=== PATIENT | female | born 1960 | race Caucasian/White ===

== ENCOUNTER → 2018-05-10 13:40 | Outpatient (CLI) | payer MEDICARE, SELFPAY ==
--- NOTE | 2018-05-10 | DI.RAD.S_ITS ---
PROCEDURE: XR SHOULDER RT MIN 2V INDICATIONS: RT SHOULDER PAIN, ARTHRITIS TECHNIQUE: 3 views of the shoulder were acquired. COMPARISON: [facility], , CHEST 2 VIEW, 06/04/2017, 16:28. FINDINGS: Bones: No fractures or dislocations. No suspicious bony lesions. Visualized ribs appear intact. Multiple surgical clips right axilla area. Mild to moderate glenohumeral and a.c. joint osteoarthritis. Soft tissues: No suspicious soft tissue calcifications. IMPRESSION: Right axillary surgical clips, potentially an indicator of prior breast carcinoma. Mild to moderate a.c. joint and glenohumeral joint osteoarthritis at the right shoulder. Dictated by: George Garcia M.D. on 05/10/2018 at 14:24 Approved by: George Garcia M.D. on 05/10/2018 at 14:25
[2018-05-10 14:17] LABS: BUN Creatinine Ratio 21.4 (6-22); Blood Urea Nitrogen 15 mg/dL (7-17); Carbon Dioxide 29 mmol/L (22-32); Chloride 104 mmol/L (98-107); Estimated Glomerular Filt Rate > 60.0 mL/min (>60); Glucose 110 mg/dL (70-100); HEMOLYSIS < 15 (0-50); Potassium 4.2 mmol/L (3.4-5.1); Sodium 145 mmol/L (137-145)
== END ==
PROVIDERS: PCP Family Medicine; Visit Provider Family Medicine
DX: M25.511 Pain in right shoulder (principal); M19.90 Unspecified osteoarthritis, unspecified site
CPT/HCPCS: 36415; 73030; 80048

== ENCOUNTER → 2018-05-24 11:18 | Outpatient (CLI) | payer MEDICARE, SELFPAY ==
--- NOTE | 2018-05-24 | DI.NM.S_ITS ---
PROCEDURE: [place] BONE SCAN WHOLE BODY RADIOPHARMACEUTICAL: 20.2 mCi Tc-99m MDP IV. INDICATIONS: Primary osteoarthritis, right shoulder,breast canc TECHNIQUE: Delayed whole-body scintigrams were obtained approximately 3-4 hours after intravenous injection of radiotracer. Anterior and posterior views were acquired from vertex to feet. Additional left and right oblique views of the thorax were obtained. COMPARISON: [place], [place], PET/CT SKULL BASE TO MID THIGH, 12/29/2016, 11:06. FINDINGS: No areas relative intense radiotracer uptake identified. Relatively subtle radiotracer uptake identified in the shoulders bilaterally, the knees bilaterally and the feet bilaterally compatible with osteoarthritis. No areas of osteopenia identified in the osseous skeleton. No abnormal soft tissue uptake identified. Activity in the kidneys is normal and symmetric. Incidental note made of prominent bilateral extrarenal pelvises. IMPRESSION: No evidence of osseous metastatic disease. Dictated by: Kathryn Hoffman MD, PhD on 05/24/2018 at 15:52 Approved by: Kathryn Hoffman MD, PhD on 05/24/2018 at 15:54
== END ==
PROVIDERS: PCP Family Medicine; Visit Provider Family Medicine
DX: M25.511 Pain in right shoulder (principal); M19.011 Primary osteoarthritis, right shoulder; Z85.3 Personal history of malignant neoplasm of breast
CPT/HCPCS: 78306; A9503

== ENCOUNTER → 2018-08-06 13:23 | Outpatient (CLI) | payer MEDICARE, SELFPAY | PROVIDERS: PCP Family Medicine; Visit Provider Family Medicine | DX: M85.852 Other specified disorders of bone density and structure, left thigh (principal); Z78.0 Asymptomatic menopausal state; Z85.3 Personal history of malignant neoplasm of breast; Z90.722 Acquired absence of ovaries, bilateral; Z82.62 Family history of osteoporosis; F17.200 Nicotine dependence, unspecified, uncomplicated | CPT/HCPCS: 77080; 77081 ==

== ENCOUNTER → 2019-01-07 12:56 | Outpatient (CLI) | payer MEDICARE, SELFPAY ==
--- NOTE | 2019-01-07 | DI.MRI.S_ITS ---
PROCEDURE: MR SHOULDER RT WO CON INDICATIONS: right shoulder pain TECHNIQUE: Noncontrast oblique coronal T2 fast spin echo with fat saturation, oblique sagittal T1 spin echo and T2 fast spin echo with fat saturation, axial T1 spin echo and T2 fast spin echo with fat saturation through the shoulder. COMPARISON: [facility], [place], XR SHOULDER RT MIN 2V, 05/10/2018, 14:03. [facility], , UP EXT WITH, 08/11/2011, 14:04. [place], [place], PET/CT SKULL BASE TO MID THIGH, 12/29/2016, 11:06. [facility], [place], [place] BONE SCAN WHOLE BODY, 05/24/2018, 14:16. [facility], [place], XR SHOULDER 2+ VIEWS RIGHT, 12/13/2018, 13:15. FINDINGS: Image quality: Excellent. Rotator cuff: There is high-grade partial-thickness tear of the supraspinatus tendon along the articular surface. There is infraspinatus and subscapularis tendinitis with tendon thickening and increased signal. Sagittal images demonstrate no supraspinatus muscle atrophy. Bones and bursae: No bone marrow contusions or fractures. Acromioplasty. Moderate acromioclavicular and glenohumeral joint degeneration. The acromion demonstrates conventional anatomy, without an os acromiale. No pathologic subacromial-subdeltoid or subcoracoid bursal fluid is present. Capsule and soft tissues: There is degenerative fraying of the superior labrum. In the absence of intra-articular contrast, the glenohumeral ligaments appear intact. The long head of the biceps tendon demonstrates normal location and morphology. The rotator interval appears normal, without fibrosis. The coracohumeral ligament is normal in thickness. IMPRESSION: 1. High-grade partial thickness tear of the supraspinatus tendon. No tendon retraction or supraspinatus muscle atrophy. 2. Infraspinatus and subscapularis tendinitis. 3. Degenerative fraying of the superior labrum. 4. Moderate acromioclavicular and glenohumeral joint degeneration. Dictated by: Shannan Ayala M.D. on 01/07/2019 at 15:21 Approved by: Shannan Ayala M.D. on 01/07/2019 at 17:35
== END ==
PROVIDERS: PCP Family Medicine; Visit Provider Orthopaedic Surgery
DX: M25.511 Pain in right shoulder (principal); M75.111 Incomplete rotator cuff tear or rupture of right shoulder, not specified as traumatic; M19.011 Primary osteoarthritis, right shoulder
CPT/HCPCS: 73221

== ENCOUNTER → 2019-01-14 11:11 | Outpatient (CLI) | payer MEDICARE, SELFPAY ==
--- NOTE | 2019-01-14 11:23 | DI.MRI.S_ITS ---
BREAST MRI OF BOTH BREASTS- WITH CAD: 01/14/2019 CLINICAL: Mastodynia. Personal history of right breast cancer. Post double mastectomy. Comparison is made to exams dated: 08/29/2017 ultrasound, 04/21/2011, and 04/12/2011 [facility]. Interpretation of this MRI was correlated with available ultrasounds. Informed consent was obtained from the patient. 20 cc of gadolinium contrast was injected. Axial T1, T2, sagittal T1, and pre and post contrast T1 images were obtained with a dedicated breast coil. Post processing was performed including computer aided calculations of any tumor volumes and dimensions. Bilateral background breast enhancement is minimal. Image quality: There is motion artifact slightly limiting evaluation. Right breast: Status post mastectomy with reconstruction. The breast implant appears intact. No discrete mass lesion or suspicious enhancement to suggest recurrent malignancy. Left breast: Status post mastectomy with reconstruction. The breast implant appears intact. No discrete mass lesion or suspicious enhancement to suggest recurrent malignancy. Miscellaneous: No evidence of axillary or internal mammary lymphadenopathy by size criteria. IMPRESSION: NEGATIVE 1. Bilateral postsurgical changes consistent with bilateral mastectomy and reconstruction demonstrated with intact bilateral implants. No discrete mass or suspicious enhancement to suggest malignancy. This exam was interpreted at Station ID: [id number]. Electronically Signed By: Prabhu Astorga M.D. ddp/:01/14/2019 17:04:56 letter sent: Clinical Evaluation ACR BI-RADS Category 1: Negative [id number]
== END ==
PROVIDERS: PCP Family Medicine; Visit Provider Obstetrics & Gynecology
DX: Z98.890 Other specified postprocedural states (principal); N64.4 Mastodynia; Z85.3 Personal history of malignant neoplasm of breast
CPT/HCPCS: 77049; A9579

== ENCOUNTER → 2019-08-12 13:06 | Outpatient (CLI) | payer MEDICARE, SELFPAY ==
--- NOTE | 2019-08-12 | DI.CT.S_ITS ---
PROCEDURE: CT ANGIO HEAD AND NECK INDICATIONS: Disorders of glossopharyngeal nerve TECHNIQUE: Pre-contrast 4.5 mm thick sections acquired from the foramen magnum to the vertex. After the administration of intravenous contrast, 1 mm thick sections acquired from the aortic arch through the [place]. Post-contrast 4.5 mm thick sections then re-acquired from the foramen magnum to the vertex. 3-dimensional zjvufna-efayujhnq-fmmvaymtcy (MIP) and/or volume rendering reformats were acquired of the central intracranial vasculature and neck separately. COMPARISON: None. FINDINGS: Image quality: Excellent. BRAIN: CSF spaces: Ventricles are normal in size and shape. Basal cisterns are patent. No extra-axial fluid collections. Brain: No midline shift. No intracranial bleeds or masses. Breaux-white matter interface appears intact. Skull and face: Calvarium and facial bones appear intact, without suspicious lesions. Orbits appear normal. Sinuses: Sinuses and mastoids are clear. HEAD CT ANGIOGRAPHY: Anterior circulation: Intracranial internal carotid arteries are normal in size and flow. The flow within the paired anterior cerebral arteries is normal and symmetric. The flow within the middle cerebral arteries is normal and symmetric. The anterior communicating artery is seen. No aneurysms are seen. Posterior circulation: Visualized portions of the vertebral arteries demonstrate normal caliber, and join to form a normal appearing basilar artery. Flow within the posterior cerebral arteries is normal and symmetric. No aneurysms are seen. NECK CT ANGIOGRAPHY: Carotid system: The great vessels demonstrate a conventional anatomy as they arise from the aortic arch. The origins of the common carotid arteries appear patent. The common carotid arteries demonstrate normal caliber and courses. The bifurcation regions are both widely patent. The internal carotid arteries demonstrate normal calibers and courses. Posterior circulation: The origins of the vertebral arteries both appear widely patent. The more superior extracranial portions of both vertebral arteries also demonstrate normal courses and calibers. They join to form a normal appearing basilar artery. Soft tissues: Visualized neck soft tissues demonstrate no suspicious abnormalities. Bones: No suspicious bony lesions. Visualized cervical spine appears normally aligned. IMPRESSION: Normal examination, source of current symptomatology is not identified. Any quantitative measurements of stenosis were performed using NASCET criteria. Dictated by: George Garcia M.D. on 08/12/2019 at 16:53 Approved by: George Garcia M.D. on 08/12/2019 at 16:56
== END ==
PROVIDERS: PCP Family Medicine; Referring Provider Family Medicine; Visit Provider Family Medicine
DX: G52.1 Disorders of glossopharyngeal nerve (principal); G50.0 Trigeminal neuralgia
CPT/HCPCS: 70496; 70498; Q9967

== ENCOUNTER → 2019-09-21 11:47 | Outpatient (CLI) | payer MEDICARE, SELFPAY ==
[2019-09-21 12:17] LABS: Add Manual Diff / Slide Review NO; Basophils Absolute Auto 0 /uL (0-100); Basophils Percent Auto 0.5 % (0-2); Eosinophils Absolute Auto 300 /uL (0-450); Eosinophils Percent Auto 5.1 % (2-4); Hematocrit 39.6 % (36-46); Hemoglobin 13.2 g/dL (12.0-16.0); Lymphocytes Absolute Auto 1900 /uL (1100-4500); Lymphocytes Percent Auto 32.8 % (25-40); Mean Corpuscular HGB Conc 33.3 % (30-36); Mean Corpuscular Hemoglobin 31.1 PG (26-34); Mean Corpuscular Volume 93.3 fL (80-100); Monocytes Absolute Auto 400 /uL (0-900); Monocytes Percent Auto 7.6 % (3-14); Neutrophils Absolute Auto 3100 /uL (1500-7000); Platelet Count 222 X10^3/uL (150-400); Red Blood Cell Count 4.24 X10^6/uL (4.0-5.2); Red Cell Distribution Width 13.8 % (11.6-14.8); White Blood Cell Count 5.8 X10^3/uL (4.5-11.0)
[2019-09-21 15:09] LABS: Influenza A - CEPHEID Flu A NEGATIVE (NEGATIVE); Influenza B - CEPHEID Flu B NEGATIVE (NEGATIVE)
[2019-09-22 15:23] LABS: COVID19 Sendout NOT DETECTED
== END ==
PROVIDERS: PCP Family Medicine; Visit Provider Physician Assistant
DX: J11.1 Influenza due to unidentified influenza virus with other respiratory manifestations (principal); R68.89 Other general symptoms and signs; R05 Cough
CPT/HCPCS: 36415; 85025; 87502; 87635

== ENCOUNTER → 2019-09-21 11:54 | Outpatient (CLI) | payer MEDICARE, SELFPAY ==
--- NOTE | 2019-09-21 11:55 | DI.RAD.S_ITS ---
PROCEDURE: XR CHEST 2V INDICATIONS: Cough, smoker, hx of breast cancer x 2, colon polyps TECHNIQUE: 2 views of the chest were acquired. COMPARISON: [facility], , CHEST 2 VIEW, 06/04/2017, 16:28. FINDINGS: Surgical changes and devices: Post surgical changes within the right axilla are present. There also are postoperative changes within the mid thoracic region. There appear to be bilateral breast implants. Lungs and pleura: Linear discoid atelectasis is identified at the left lung base. No suspicious areas of pulmonary consolidation are identified. No pneumothorax or pleural effusion is evident. Mediastinum: Mediastinal contours are normal. Heart size is normal. Bones and chest wall: No suspicious bony abnormalities. Soft tissues appear unremarkable. IMPRESSION: Mild left basilar atelectasis. No definitive pneumonia. Dictated by: Jose Swenson M.D. on 09/21/2019 at 11:20 Approved by: Jose Swenson M.D. on 09/21/2019 at 11:21
== END ==
PROVIDERS: PCP Family Medicine; Referring Provider Physician Assistant; Visit Provider Physician Assistant
DX: R05 Cough (principal); J98.11 Atelectasis; J11.1 Influenza due to unidentified influenza virus with other respiratory manifestations; R68.89 Other general symptoms and signs; F17.200 Nicotine dependence, unspecified, uncomplicated; Z85.3 Personal history of malignant neoplasm of breast; Z86.010 Personal history of colon polyps
CPT/HCPCS: 36415; 71046; 85025; 87502; 87635

== ENCOUNTER → 2020-02-19 13:20 | Outpatient (CLI) | payer MEDICARE, SELFPAY ==
--- NOTE | 2020-02-19 | DI.MRI.S_ITS ---
PROCEDURE: MR SHOULDER RT WO CON INDICATIONS: OTHER INJURY TO TENDONS AND MUSCLES TECHNIQUE: Noncontrast oblique coronal T2 fast spin echo with fat saturation, oblique sagittal T1 spin echo and T2 fast spin echo with fat saturation, axial T1 spin echo and T2 fast spin echo with fat saturation through the shoulder. COMPARISON: [facility], MR, MR SHOULDER RT WO CON, 01/07/2019, 13:40. [facility], MR, UP EXT WITH, 08/11/2011, 14:04. [facility], CR, XR SHOULDER RT MIN 2V, 05/10/2018, 14:03. FINDINGS: Image quality: Excellent. Rotator cuff: High-grade, partial undersurface tear of the supraspinatus tendon is not significantly changed compared to prior examination obtained January 07, 2019. The infraspinatus, and subscapularis tendons appear intact throughout. Mild thickening of the infraspinatus tendon with increased internal signal compatible mild tendinosis. Sagittal images demonstrate no muscle atrophy. Bones and bursae: No bone marrow contusions or fractures. Moderate acromioclavicular joint osteoarthritis. Mild glenohumeral joint osteoarthritis. The acromion demonstrates conventional anatomy, without an os acromiale. No pathologic subacromial-subdeltoid or subcoracoid bursal fluid is present. Capsule and soft tissues: In the absence of intra-articular contrast, the labrum and glenohumeral ligaments appear intact. The long head of the biceps tendon demonstrates normal location and morphology. The rotator interval appears normal, without fibrosis. The coracohumeral ligament is normal in thickness. IMPRESSION: 1. High-grade, partial undersurface tear of the supraspinatus tendon not significantly changed compared to January 07, 2019. 2. Mild infraspinatus tendinosis. 3. Moderate acromioclavicular joint and mild glenohumeral joint osteoarthritis. Dictated by: Kathryn Hoffman MD, PhD on 02/19/2020 at 17:21 Approved by: Kathryn Hoffman MD, PhD on 02/19/2020 at 20:44
== END ==
PROVIDERS: PCP Family Medicine; Referring Provider Family Medicine; Visit Provider Family Medicine
DX: S46.091D Other injury of muscle(s) and tendon(s) of the rotator cuff of right shoulder, subsequent encounter (principal); M19.011 Primary osteoarthritis, right shoulder; X58.XXXD Exposure to other specified factors, subsequent encounter
CPT/HCPCS: 73221

== ENCOUNTER → 2020-07-13 13:52 | Outpatient (CLI) | payer MEDICARE, SELFPAY ==
--- NOTE | 2020-07-13 | DI.RAD.S_ITS ---
PROCEDURE: [place] SHOULDER INJECTION MR/CT RT INDICATIONS: INCOMPLETE RIGHT SHOULDER TEAR COMPARISON: [facility], MR, MR SHOULDER RT WO CON, 02/19/2020, 13:53. TECHNIQUE: The indications, alternatives, benefits, risks, and complications of the procedure were explained to the patient. Written informed consent was obtained and placed in the chart. The shoulder was examined fluoroscopically and a site for needle placement chosen for entry into the glenohumeral joint from an anterior approach. The skin was prepped and draped in a sterile fashion, and 1% lidocaine infiltrated from skin down to joint capsule. A spinal needle was inserted into the glenohumeral joint, and a small amount of iodinated contrast media injected to confirm intra-articular placement of the needle tip. This was followed by approximately 12 mL dilute solution of a gadolinium containing MR contrast agent. The needle was removed and a dressing was applied. The patient was given postprocedural instructions and sent to the MR suite for MR imaging. FINDINGS: A single fluoroscopic spot image demonstrates intra-articular location of injected iodinated contrast. IMPRESSION: Successful fluoroscopically guided administration of dilute Gadolinium solution into the shoulder joint for MR arthrogram. Dictated by: Shannan Ayala M.D. on 07/13/2020 at 14:53 Approved by: Shannan Ayala M.D. on 07/13/2020 at 14:53
--- NOTE | 2020-07-13 | DI.MRI.S_ITS ---
PROCEDURE: MR SHOULDER RT W CON INDICATIONS: RIGHT SHOULDER TECHNIQUE: After the administration of 12 mL of dilute intra-articular Gadolinium contrast, oblique coronal T1 and T2 spin echo with fat saturation, oblique sagittal T1 spin echo with and without fat saturation, oblique sagittal T2 fast spin echo with fat saturation, axial T1 spin echo with fat saturation through the shoulder. COMPARISON: None. FINDINGS: Image quality: Excellent. Rotator cuff: Distal supraspinatus tendinosis and low-grade articular and bursal surface partial thickness tear at its insertion on the humeral head is likely present. Distal infraspinatus tendinosis is also noted. Distal subscapularis tendon is intact. No full-thickness rotator cuff tendon rupture. throughout. No rotator cuff muscle atrophy on sagittal images. Bones and bursae: No bone marrow contusions or fractures. Moderate acromioclavicular joint osteoarthritic changes are seen with downward osteophyte formation depressing the musculotendinous junction of supraspinatus. The acromion demonstrates conventional anatomy, without an os acromiale. Capsule and soft tissues: The labrum and glenohumeral ligaments appear intact. The long head of the biceps tendinosis is noted. The rotator interval appears normal, without fibrosis. The coracohumeral ligament is of normal thickness. No intra-articular bodies. IMPRESSION: 1. Tendinosis and low-grade articular and bursal surface partial thickness tear involving distal supraspinatus. Distal infraspinatus tendinosis. No full-thickness rotator cuff tendon rupture. 2. Moderate acromioclavicular joint osteoarthritis. 3. No gross focal labral tear. 4. Tendinosis involving proximal intra-articular portion of long head of biceps. Dictated by: Sai Cha M.D. on 07/13/2020 at 15:43 Approved by: Sai Cha M.D. on 07/13/2020 at 15:45
== END ==
PROVIDERS: PCP Family Medicine; Referring Provider Family Medicine; Visit Provider Family Medicine
DX: M75.111 Incomplete rotator cuff tear or rupture of right shoulder, not specified as traumatic (principal); M19.011 Primary osteoarthritis, right shoulder
CPT/HCPCS: 23350; 73040; 73222; 77002

== ENCOUNTER → 2020-08-10 12:18 | Outpatient (CLI) | payer MEDICARE, SELFPAY ==
--- NOTE | 2020-08-10 | DI.US.S_ITS ---
PROCEDURE: US CAROTID DOPPLER BI INDICATIONS: TACHYCARDIA TECHNIQUE: Color and pulse Doppler interrogation was performed of both carotid systems, with image documentation and velocity measurements. COMPARISON: None. FINDINGS: Stenosis calculations are based on SRU (Society of Radiologists in Ultrasound) criteria. Right side: Brachial blood pressure: 106/72 mm Hg. Common carotid artery peak systolic velocity: 100 cm/sec. Internal carotid artery peak systolic velocity: 147 cm/sec. Internal carotid artery end diastolic velocity: 72 cm/sec. External carotid artery peak systolic velocity: 75 cm/sec. ICA/CCA peak systolic ratio: 1.5 . Breaux scale imaging description: Minimal plaque Percent internal carotid artery stenosis: 50-69% stenosis Vertebral artery: Flow direction is antegrade. Left side: Brachial blood pressure: 106/72 mm Hg. Common carotid artery peak systolic velocity: 101 cm/sec. Internal carotid artery peak systolic velocity: 123 cm/sec. Internal carotid artery end diastolic velocity: 59 cm/sec. External carotid artery peak systolic velocity: 88 cm/sec. ICA/CCA peak systolic ratio: 1.2 . Breaux scale imaging description: Minimal plaque Percent internal carotid artery stenosis: Less than 50% . Vertebral artery: Flow direction is antegrade. IMPRESSION: 1. 50-69% right internal carotid artery stenosis. 2. Less than 50% left internal carotid artery stenosis. Dictated by: Bonilla HARKINS Interpreted: Francisco Hsu MD on 08/10/2020 at 13:36 Approved by: Francisco Hsu M.D. on 08/10/2020 at 13:52
== END ==
PROVIDERS: PCP Family Medicine; Referring Provider Family Medicine; Visit Provider Family Medicine
DX: I65.23 Occlusion and stenosis of bilateral carotid arteries (principal); R00.0 Tachycardia, unspecified
CPT/HCPCS: 93880

== ENCOUNTER → 2020-09-03 10:34 | Outpatient (CLI) | payer MEDICARE, SELFPAY ==
--- NOTE | 2020-09-03 | DI.RAD.S_ITS ---
PROCEDURE: XR CHEST 2V INDICATIONS: COUGH, SHORTNESS OF BREATH TECHNIQUE: 2 views of the chest were acquired. COMPARISON: [facility], , XR CHEST 2V, 09/21/2019, 11:54. [facility], , CHEST 2 VIEW, 06/04/2017, 16:28. FINDINGS: Surgical changes and devices: Bilateral axillary clips. Thoracic spine intervertebral body spacers. Lungs and pleura: Minimal streaky opacity at the left lung base is decreased. No consolidation. No pleural effusions or pneumothorax. Mediastinum: Mediastinal contours are normal. Heart size is normal. Bones and chest wall: No suspicious bony abnormalities. Soft tissues appear unremarkable. IMPRESSION: Minimal streaky opacity at the left lung base is stable to decreased. This less likely represents scarring or atelectasis. No consolidation. Dictated by: Kehinde Rg M.D. on 09/03/2020 at 10:06 Approved by: Kehinde Rg M.D. on 09/03/2020 at 10:08
== END ==
PROVIDERS: PCP Family Medicine; Referring Provider Internal Medicine; Visit Provider Internal Medicine
DX: R05 Cough (principal); R06.02 Shortness of breath
CPT/HCPCS: 71046

== ENCOUNTER → 2020-09-20 13:20 | Outpatient (CLI) | payer MEDICARE, SELFPAY ==
[2020-09-20 15:58] LABS: COVID19 -Nasal RAPID Negative (Negative)
== END ==
PROVIDERS: PCP Family Medicine; Visit Provider Physician Assistant
DX: Z01.812 Encounter for preprocedural laboratory examination (principal); Z20.822 Contact with and (suspected) exposure to COVID-19
CPT/HCPCS: 87635; C9803

== ENCOUNTER 2020-09-22 13:54 | Day surgery (SDC) | payer MEDICARE, SELFPAY ==
[2020-09-22] VITALS (8 sets, daily range): BP systolic 99–119; BP diastolic 66–85; PULSE 64–93; RESP 14–18; TEMP 36.2–37.3; O2SAT 97–99; BMI 22.1
--- NOTE | 2020-09-22 | PATH_ITS ---
[facility] Accession Number: [id number] . 01 Material submitted: . esophagus - ESOPHAGEAL POLYPS . 01 Clinical history: . DX COLONOSCOPY / EGD W/POSS BX . 02 Diagnosis: Esophagus, Polyps, Biopsies: One fragment of squamocolumnar junctional mucosa with foveolar hyperplasia consistent with hyperplastic polyp. Second fragment of cardio oxyntic-type mucosa with no significant diagnostic abnormality. Negative for intestinal metaplasia. Negative for dysplasia and malignancy. V 09/27/2020 1444 Local . 02 Electronically signed: . Mireya Escobar MD, Pathologist NPI- [id number] . 01 Gross description: . The specimen is received in formalin, labeled esophageal polyps and consists of two brink-pink fragments of soft tissue measuring 0.4 x 0.3 x 0.2 cm in aggregate. The specimen is entirely submitted in cassette A1. ([id number]) /V 09/23/2020 1416 Local . 02 Pathologist provided ICD-10: Z86.010 . 02 CPT . 627027 Performed at: 01 [facility] [address] [place] [address], [place], [place] [id number] MD Prabhu Gonzales MD Phone: [phone] Performed at: 02 [facility] [address] [place], [place] [id number] MD Mireya Escobar MD Phone: [phone]
--- NOTE | 2020-09-22 14:32 | PM.HP.1 ---
History of Present Illness History of Present Illness Date Patient Seen: 09/22/20 Chief complaint: DX COLONOSCOPY & EGD W/POSS BX Narrative: Short-segment Silvestre's and history of colon polyps Patient History Surgical History (Updated 09/22/20 @ 13:49 by Merary Tesfaye RN) H/O: hysterectomy S/P bilateral mastectomy Meds Home Medications and Allergies Home Medications Medication Instructions Recorded Confirmed Type CA PANTOTHENATE/FOLIC ACID/VIT 1 tab PO QDAY #0 05/23/12 09/22/20 History (MULTIVITAMIN) cyclobenzaprine 10 mg PO DAILY #0 05/23/12 09/22/20 History lorazepam [Ativan] 6 mg PO HS #0 05/23/12 09/22/20 History oxycodone [Roxicodone] 20 mg PO Q4HP PRN #0 05/23/12 09/22/20 History prochlorperazine maleate 10 mg PO PRN #0 05/23/12 09/22/20 History dicyclomine 10 mg PO PRN PRN #0 12/16/12 09/22/20 History alprazolam 0.25 mg PO PRN PRN #0 12/25/16 09/22/20 History cetirizine 10 mg PO QDAY #0 12/25/16 09/22/20 History tramadol 50 mg PO PRN PRN #0 12/25/16 09/22/20 History rizatriptan [Maxalt] 10 mg PRN PRN #0 05/07/17 09/22/20 History aluminum hydrox-magnesium carb 2 tab PO PRN PRN 09/22/20 09/22/20 History [Gaviscon] aspirin [Aspir-81] 81 mg PO DAILY 09/22/20 09/22/20 History docusate sodium [Dulcolax Stool 100 mg PO DAILY 09/22/20 09/22/20 History Softener (dss)] escitalopram oxalate [Lexapro] 10 mg PO DAILY 09/22/20 09/22/20 History levothyroxine 75 mcg PO DAILY 09/22/20 09/22/20 History mometasone 2 spray INTRANASAL DAILY 09/22/20 09/22/20 History sennosides [Senokot] 8.6 mg PO PRN PRN 09/22/20 09/22/20 History Allergies Allergy/AdvReac Type Severity Reaction Status Date / Time carbamazepine [From Tegretol] Allergy Severe suicidal Verified 09/22/20 14:15 gabapentin [GABAPENTIN] Allergy Severe suicidal Verified 09/22/20 14:15 morphine Allergy Severe stopped Verified 09/22/20 14:15 breating, hives prednisone Allergy Severe Anaphylaxis Verified 09/22/20 14:15 pregabalin [From LYRICA] Allergy Severe suicidal Verified 09/22/20 14:15 mirtazapine Allergy Unknown Unverified 09/22/20 14:15 methadone Allergy difficulty Verified 09/22/20 14:15 breathing, confusion codeine AdvReac Mild Nausea Verified 09/22/20 14:15 Exam Narrative Exam Narrative: Oropharynx free of lesions Chest clear to auscultation percussion Cardiac exam reveals no S3 or murmur Assessment & Plan Assessment & Plan narrative: Short-segment Silvestre's surveillance and polyp surveillance. EGD and colonoscopy needed. Risk, benefits alternatives explained.
--- NOTE | 2020-09-22 14:34 | PM.OP.ENDO ---
Operative Date/Time/Diagnoses Date of procedure: 09/22/20 Pre-op diagnosis: See indication and findings Procedure & Clinicians Study performed: EGD and colonoscopy Same procedure as scheduled: Yes Indications: History of short-segment Silvestre's esophagus and history of colon polyps. Surgeon: Valentina Monzon Procedure Notes Procedure in detail: After informed consent was obtained the patient was placed in left lateral decubitus position. The video colonoscope was introduced the rectum slowly advanced to the cecum. Preparation was good. On slow withdrawal mucosa was carefully examined. The scope was removed. The patient tolerated procedure well. EGD scope was substituted in passed into the esophagus. Examination of the esophagus stomach and duodenum were carefully performed. On slow withdrawal mucosa was carefully examined. GE junction was evaluated. Scope removed patient tolerated procedure well. Blood loss none Complications none Sedation MAC Findings EGD 1. P; tissue barely above the top of the GB folds in 2 spots. Biopsies taken in a virtually covering the entire area. Rule out Silvestre's esophagus. 2. Normal stomach 3. Normal duodenal bulb and sweep Colonoscopy 1. Relatively poor prep though I was able to suction away most of the large volume stool present. Still, visualization was difficult. Very tortuous colon 2. Extensive melanosis coli 3. Otherwise negative colonoscopy to cecum. No polyps seen. I was just follow-up colonoscopy in 1-3 year. Given her history of polyps and the fact that this was difficult. She should be done under anesthesia and GB should be done with a double dose preparation. Follow-up EGD in 3 years at the earliest.
[2020-09-22] MEDS: LACTATED RINGERS 1,000 ML 100 ML IV (14:41)
--- NOTE | 2020-09-22 16:48 | SUR.PHASEII ---
Pt's [id number] picking her up, but she is working until 1700 in [place]. Left message with [id number] to inform her that pt was ready for pickup and to call here when she gets the message. Pt upset. She states that she spoke to someone yesterday that told her that she would be allowed to be discharged and wait at that hospital door with the supervision of the optical effects layout person. Pt informed that this is not hospital policy. She must be discharged to a responsible adult for her safety. Pt dressed and awaiting her ride.
--- NOTE | 2020-09-22 17:46 | SUR.PHASEII ---
1720 Patient has been up and down out of the wheelchair, stating her displeasure with the policy, stating that she is 60 years old and should be able to make her own decisions. Explained risk and liability to her. Received call that her ride would be here at 1725. Took patient to the ER entrance. Patient talking about her losses, inadequate prep, fecal incontinence in her bed with no running water to shower (water line break), elevated tumor markers, son's , and more. Patient wanted to smoke prior to being picked up because she cannot smoke in their car. Patient taken outside, away from entry, to smoke. She was very appreciative and began smiling. Agitation and frustration no longer modeled in her behavior. Connected patient with her ride at 1740. Despite her frustrations, she expressed appreciation upon departure. Stable on feet.
== END 2020-09-22 17:20 | disposition home or self-care (01) ==
PROVIDERS: PCP Family Medicine; Referring Provider Internal Medicine Gastroenterology; Visit Provider Internal Medicine Gastroenterology
PROC: 0DJ08ZZ Inspection of Upper Intestinal Tract, Via Natural or Artificial Opening Endoscopic (ICD-10-PCS; CPT 43235; principal; 2020-09-22 15:00)
PROC: 0DJD8ZZ Inspection of Lower Intestinal Tract, Via Natural or Artificial Opening Endoscopic (ICD-10-PCS; CPT 45378; 2020-09-22 15:00)
DX: Z12.11 Encounter for screening for malignant neoplasm of colon (principal); Z86.010 Personal history of colon polyps; K63.89 Other specified diseases of intestine; K22.8 Other specified diseases of esophagus
CPT/HCPCS: 43239; 45378

== ENCOUNTER → 2020-10-20 12:29 | Outpatient (CLI) | payer MEDICARE, SELFPAY ==
--- NOTE | 2020-10-20 12:42 | DI.CT.S_ITS ---
PROCEDURE: CT CHEST WO CON INDICATIONS: Screening for lung cancer in 40 pack year smoker TECHNIQUE: Noncontrast 2.0-2.5 mm thick sections acquired from the pulmonary apices to the posterior costophrenic angles. 7 mm thick axial MIP, and 5 mm coronal and sagittal reformats were then acquired. A low radiation dose technique was utilized. COMPARISON: None. FINDINGS: Image quality: Diagnostic, given the low radiation dose technique. Lungs and pleura: No effusions or consolidations. Linear opacities are present within the bases likely related to scarring. No mass lesions or nodules are identified. Mediastinum: Heart size is normal. No pericardial effusion. No mediastinal adenopathy by size criteria. Thoracic aorta and central pulmonary arteries are normal in size. Esophagus is normal in caliber. No hiatal hernia. Bones and chest wall: No suspicious bony lesions. No vertebral body compression fractures. No axillary or supraclavicular adenopathy by size criteria. Thyroid gland is unremarkable. Abdomen: Visualized upper abdomen solid organs and bowel loops appear normal in the absence of contrast. IMPRESSION: 1. No effusions or consolidations. No masses or nodules. LUNG-RADS 1; recommend annual screening CT exam in 1 year. Dictated by: Mallorie Conley M.D. on 10/20/2020 at 16:46 Approved by: Mallorie Conley M.D. on 10/20/2020 at 16:48
== END ==
PROVIDERS: PCP Family Medicine; Referring Provider Internal Medicine; Visit Provider Internal Medicine
DX: Z12.2 Encounter for screening for malignant neoplasm of respiratory organs (principal); F17.200 Nicotine dependence, unspecified, uncomplicated; Z85.3 Personal history of malignant neoplasm of breast
CPT/HCPCS: 71250

== ENCOUNTER → 2021-09-14 18:22 | Outpatient (CLI) | payer MEDICARE, SELFPAY ==
--- NOTE | 2021-09-14 | DI.MRI.S_ITS ---
PROCEDURE: MR LUMBAR SPINE WO CON INDICATIONS: Radiculopathy lumbar region TECHNIQUE: Noncontrast sagittal T1 spin echo and T2 fast echo, sagittal STIR, and T2 fast spin echo through the lumbar spine. In cases with scoliosis, additional coronal T2 fast spin echo may be performed. COMPARISON: [facility], CT, L-SPINE WITHOUT CONTRAST, 02/02/2015, 12:58. FINDINGS: Postsurgical changes of L5-S1 posterior fixation again noted. Unchanged anterolisthesis L5 on S1 measuring approximately 7 mm. Alignment is otherwise normal. Vertebral body heights maintained. No suspicious focal marrow signal abnormality or bone marrow edema identified. Normal position and appearance of the conus. Prevertebral and paraspinous soft tissues are within normal limits. T12-L1: No spinal canal or neural foraminal stenosis. L1-L2: No spinal canal or neural foraminal stenosis. L2-L3: Disc bulge flattens the ventral thecal sac. Mild displacement of the descending bilateral L3 nerve roots in both subarticular zones. Foraminal components of the disc bulge and facet hypertrophy combine to produce moderate right and mild left neural foraminal stenosis. L3-L4: Disc bulge and a superimposed broad-based posterior disc protrusion flatten and indent the ventral thecal sac. There is displacement of the bilateral descending L4 nerve roots within both subarticular zones. Mild bilateral neural foraminal stenosis L4-L5: Disc bulge flattens and indents the ventral thecal sac with no displacement of the descending L5 nerve roots. Foraminal components of the disc bulge and facet hypertrophy combine to produce mild bilateral neural foraminal stenosis. L5-S1: Pseudo bulge related to the anterolisthesis produces mild displacement of the descending S1 nerve roots. There is moderate neural foraminal stenosis bilaterally as seen on the prior study. IMPRESSION: Postsurgical changes of L5-S1 posterior fixation with unchanged anterolisthesis of L5 on S1 when compared with January 2015 examination. Mild progression of multilevel multifactorial degenerative changes, particularly at L3-L4 with there is now moderate spinal canal stenosis. Dictated by: Felipe Randle M.D. on 09/15/2021 at 10:50 Approved by: Felipe Randle M.D. on 09/15/2021 at 11:05
== END ==
PROVIDERS: PCP Family Medicine; Referring Provider Family Medicine; Visit Provider Family Medicine
DX: Z98.1 Arthrodesis status; M47.27 Other spondylosis with radiculopathy, lumbosacral region; M47.26 Other spondylosis with radiculopathy, lumbar region
CPT/HCPCS: 72148

== ENCOUNTER → 2021-09-16 10:31 | Outpatient (CLI) | payer MEDICARE, SELFPAY ==
--- NOTE | 2021-09-16 10:39 | DI.CT.S_ITS ---
PROCEDURE: CT CHEST WO CON INDICATIONS: Annual screening in current smoker TECHNIQUE: Noncontrast 2.0-2.5 mm thick sections acquired from the pulmonary apices to the posterior costophrenic angles. 7 mm thick axial MIP and 5 mm coronal and sagittal reformats were then acquired. A low radiation dose technique was utilized. COMPARISON: [facility], [place], PET/CT SKULL BASE TO MID THIGH, 12/29/2016, 11:06. [facility], CT, CT CHEST WO CON, 10/20/2020, 12:34. FINDINGS: Image quality: Diagnostic, given the low radiation dose technique. Lungs and pleura: There is a 4 mm nodule in the right middle lobe (series 3 image 210 close), unchanged in size. Moderate emphysema. Subpleural scars and atelectasis in right middle lobe, lingula, and both lower lobes. Mediastinum: Heart size is normal. Moderate coronary artery calcification. No pericardial effusion. No mediastinal adenopathy by size criteria. Thoracic aorta and central pulmonary arteries are normal in size. Esophagus is normal in caliber. No hiatal hernia. Bones and chest wall: Bilateral breast implants. No suspicious bony lesions. No vertebral body compression fractures. Disc prostheses are noted at T7-T8 and T8-T9. No axillary or supraclavicular adenopathy by size criteria. Thyroid gland is normal. Abdomen: Visualized upper abdomen solid organs and bowel loops appear normal in the absence of contrast. IMPRESSION: 1. Stable 4 mm nodule in the right middle lobe. ACR Lung RADS category 2. Recommend annual screening lung CT in 12 months. Dictated by: Shannan Ayala M.D. on 09/16/2021 at 14:31 Approved by: Shannan Ayala M.D. on 09/16/2021 at 14:36
[2021-09-16 11:03] LABS: Add Manual Diff / Slide Review NO; Basophils Absolute Auto 100 /uL (0-100); Eosinophils Absolute Auto 100 /uL (0-450); Eosinophils Percent Auto 2.4 % (2-4); Hematocrit 37.2 % (36-46); Hemoglobin 12.6 g/dL (12.0-16.0); Lymphocytes Absolute Auto 1800 /uL (1100-4500); Lymphocytes Percent Auto 31.4 % (25-40); Mean Corpuscular Hemoglobin 31.9 PG (26-34); Mean Corpuscular Volume 93.9 fL (80-100); Monocytes Absolute Auto 400 /uL (0-900); Monocytes Percent Auto 7.4 % (3-14); Neutrophils Absolute Auto 3400 /uL (1500-7000); Neutrophils Percent Auto 57.8 % (50-75); Platelet Count 182 X10^3/uL (150-400); Red Blood Cell Count 3.96 X10^6/uL (4.0-5.2); Red Cell Distribution Width 14.1 % (11.6-14.8); White Blood Cell Count 5.9 X10^3/uL (4.5-11.0)
[2021-09-16 11:19] LABS: Alanine Aminotransferase 16 IU/L (<35); Albumin 4.2 g/dL (3.5-5.0); Albumin Globulin Ratio 1.6 (1.0-2.8); Alkaline Phosphatase 46 U/L (38-126); Aspartate Aminotransferase 30 IU/L (14-36); BUN Creatinine Ratio 18.1 (6-22); Bilirubin Total 0.5 mg/dL (0.2-1.3); Blood Urea Nitrogen 13 mg/dL (7-17); Carbon Dioxide 29 mmol/L (22-32); Chloride 103 mmol/L (98-107); Estimated Glomerular Filt Rate > 60.0 mL/min (>60); Globulin 2.6 g/dL (1.7-4.1); Glucose 113 mg/dL (80-110); HEMOLYSIS 31 (0-50); Potassium 4.5 mmol/L (3.4-5.1); Sodium 137 mmol/L (137-145); Total Protein 6.8 g/dL (6.3-8.2)
[2021-09-16 11:40] LABS: Carcinoembryonic Antigen 4.9 ng/mL (0.1-3.0)
== END ==
PROVIDERS: PCP Family Medicine; Referring Provider Internal Medicine Medical Oncology; Visit Provider Internal Medicine
DX: Z85.3 Personal history of malignant neoplasm of breast (principal); Z08 Encounter for follow-up examination after completed treatment for malignant neoplasm; R91.1 Solitary pulmonary nodule; F17.200 Nicotine dependence, unspecified, uncomplicated
CPT/HCPCS: 36415; 71250; 80053; 82378; 85025

== ENCOUNTER → 2022-10-26 12:31 | Outpatient (CLI) | payer MEDICARE, SELFPAY ==
--- NOTE | 2022-10-26 | DI.CT.S_ITS ---
PROCEDURE: CT CHEST WO CON INDICATIONS: Solitary pulmonary nodule TECHNIQUE: Noncontrast 5 mm thick sections acquired from the pulmonary apices to the posterior costophrenic angles. 1 mm lung window, 5 mm thick coronal and sagittal and 7 mm axial MIP reformats were then acquired. For radiation dose reduction, the following was used: automated exposure control, adjustment of mA and/or kV according to patient size. COMPARISON: [facility], CT, CT CHEST WO CON, 09/16/2021, 10:39. FINDINGS: Image quality: Excellent. Lungs and pleura: Emphysematous changes of the pulmonary parenchyma particularly noted in the lung apices. 4 mm nodule again noted is in the right middle lobe on image 3/212. Calcified granuloma noted image 3/241 right middle lobe Mediastinum: Heart size is normal. No pericardial effusion. No mediastinal adenopathy by size criteria. Thoracic aorta and central pulmonary arteries are normal in size. Esophagus is normal in caliber. No hiatal hernia. Bones and chest wall: No suspicious bony lesions. No vertebral body compression fractures. No axillary or supraclavicular adenopathy by size criteria. Thyroid gland unremarkable. Bilateral breast prosthesis unchanged. Interbody fusion noted in the mid thoracic spine, unchanged Abdomen: Visualized upper abdominal solid organs and bowel loops appear normal in the absence of contrast. IMPRESSION: Stable 4 mm nodule right middle lobe. ACR lung RADS category 2. Continue annual screening Approved by: Star Garza M.D. on 10/26/2022 at 18:14
== END ==
PROVIDERS: PCP Internal Medicine Hematology & Oncology; Referring Provider Family Medicine; Visit Provider Family Medicine
DX: R91.1 Solitary pulmonary nodule (principal)
CPT/HCPCS: 71250

== ENCOUNTER → 2022-10-26 12:43 | Outpatient (CLI) | payer MEDICARE, SELFPAY ==
--- NOTE | 2022-11-02 08:28 | PM.PFT.1 ---
Pulmonary Function Test Referral & Results Date Patient Seen: 10/26/22 Results: The spirometry demonstrates an FVC of 3.53 L which is 97% of predicted. The FEV1 was measured at 2.36 L which is 84% of predicted. The FEV1/FVC ratio was 67 which is 85% of predicted. Following the administration of bronchodilator there was a 14% improvement in FEV1 and a 69% improvement in FEF 25-75%. Lung volumes show an SVC of 3.62 L which is 109% of predicted. The diffusing capacity was measured at 16.59 which is 58% of predicted. No hemoglobin value was provided, so no correction for potential anemia could be made, if appropriate. The maximum voluntary ventilation was normal Interpretation: This study demonstrates perhaps very mild obstructive lung disease based on minimal reduction FEV1, there is however evidence of more significant benefit in small airway flow after bronchodilator than 1 would expect given the mild degree of obstructive lung disease seen on pre bronchodilator spirometry. Lung volumes are normal Diffusing capacity is moderately reduced which suggest disease at the capillary alveolar level Clinical correlation suggested
== END ==
PROVIDERS: PCP Internal Medicine Hematology & Oncology; Referring Provider Family Medicine; Visit Provider Family Medicine
DX: J41.0 Simple chronic bronchitis (principal); F17.210 Nicotine dependence, cigarettes, uncomplicated; D49.1 Neoplasm of unspecified behavior of respiratory system; R91.1 Solitary pulmonary nodule
CPT/HCPCS: 71250; 94060; 94726; 94729

== ENCOUNTER → 2022-11-02 11:40 | Outpatient (CLI) | payer MEDICARE, SELFPAY ==
--- NOTE | 2022-11-02 11:41 | DI.MRI.S_ITS ---
BREAST MRI OF BOTH BREASTS: 11/02/2022 CLINICAL: Left breast pain. Comparison is made to exams dated: 01/14/2019 breast MRI, 08/29/2017 ultrasound, 04/21/2011, and 04/12/2011 [facility]. Gadolinium contrast was injected. Implant sequence, axial T1, T2, sagittal T1, and pre and post contrast T1 images were obtained. Image quality: Images are motion degraded. Patient is status post double mastectomy. Right breast: Silicone implants are present. Normal radial folds are seen. No suspicious enhancement post gadolinium images. Left breast: Cervical impress are present. Normal radial folds are seen. No suspicious enhancement on post gadolinium images. Miscellaneous: Partially visualized mediastinum, heart, and upper abdomen are unremarkable. No suspicious adenopathy by size criteria or morphology. IMPRESSION: BENIGN Patient is status post double mastectomy. Silicone implants are present. No evidence of rupture. There are normal radial folds. No suspicious enhancement to suggest malignancy. No suspicious adenopathy in the field of view by size criteria or morphologic characteristics. No explanation identified for left breast pain. If there is a focal area, consider sonographic correlation. Clinical followup and evaluation are also recommended. BIRADS 2 Images are motion degraded. COMMENT: The imaging literature indicates that a negative contrast breast MRI examination has a high sensitivity and a moderate specificity for detecting and excluding invasive carcinomas to a detection threshold of 3-5 mm; nonetheless, appropriate clinical and mammographic follow-up are recommended. MRI is not sensitive for detecting DCIS (ductal carcinoma in situ) and may not detect large invasive neoplasms that show only minimal enhancement such as mucinous carcinoma. If there are suspicious calcifications or clinically worrisome palpable masses, then biopsy should still be considered. Invasive neoplasms can be hidden by co-existent and benign enhancement caused by mastitis, hormone therapy effects, radiation therapy, , and recent biopsy or surgery. False positive examinations can occur in a number of circumstances, including breasts that have recently been subject to invasive procedures and those that contain atypical ductal hyperplasia, hormonally stimulated glandular tissue, fat necrosis, or radial scars. This exam was interpreted at Station ID: [id number]. Electronically Signed By: Daniel Barboza M.D. lc/:11/02/2022 13:38:14 letter sent: Clinical Evaluation ACR BI-RADS Category 2: Benign Finding(s) [id number]
== END ==
PROVIDERS: PCP Family Medicine; Referring Provider Internal Medicine Hematology & Oncology; Visit Provider Internal Medicine Hematology & Oncology
DX: N64.4 Mastodynia (principal); Z85.3 Personal history of malignant neoplasm of breast; Z98.82 Breast implant status
CPT/HCPCS: 77049; A9579

== ENCOUNTER 2022-11-20 11:49 | Day surgery (SDC) | payer MEDICARE, SELFPAY ==
--- NOTE | 2022-11-20 | PATH_ITS ---
[facility] Accession Number: [id number] No. of containers..02 Tissue . 01 Material submitted: . PART A: colon - RIGHT COLON PART B: colon - LEFT COLON . 01 Diagnosis: A. Right Colon, Biopsies: Tubular adenomas and hyperplastic polyp. . B. Left Colon, Biopsy: Tubular adenoma and hyperplastic polyp. [facility] 11/23/2022 1151 Local . 01 Electronically signed: . Tomy Aviles MD, PhD, Pathologist NPI- [id number] . 01 Gross description: . Part A: RIGHT COLON: Received in formalin are 3 fragment(s) of brink, soft tissue measuring 0.1 x 0.1 x 0.1 cm to 0.2 x 0.2 x 0.2 cm submitted entirely in 1 cassette(s) Part B: LEFT COLON : Received in formalin are 2 fragment(s) of brink, soft tissue measuring 0.2 x 0.2 x 0.2 cm to 0.6 x 0.6 x 0.6 cm submitted entirely in 1 cassette(s) /MADELAINE 11/22/2022 0110 Local . 01 Pathologist provided ICD-10: D12.6 . 01 CPT . 087662, [id number] Specimen Comment: A courtesy copy of this report has been sent to [phone] Performed at: [facility] [address] [place] [address], [place], [place] [id number] MD Prabhu Gonzales MD Phone: [phone]
[2022-11-20 12:14] VITALS: BP 114/73; PULSE 73; RESP 16; TEMP 36.4; O2SAT 99; BMI 21.4
[2022-11-20] MEDS: LACTATED RINGERS 1,000 ML 42 ML IV (12:22)
--- NOTE | 2022-11-20 12:28 | PM.HP.1 ---
History of Present Illness History of Present Illness Date Patient Seen: 11/20/22 Time Patient Seen: 12:28 Chief complaint: Dx Colonoscopy Narrative: Personal history of colon polyps. Here for colonoscopy. [facility] Surgical History H/O: hysterectomy S/P bilateral mastectomy Social History household members: none Smoking Status: Current every day smoker alcohol intake: current Meds Home Medications and Allergies Home Medications Medication Instructions Recorded Confirmed Type CA PANTOTHENATE/FOLIC ACID/VIT 1 tab PO QDAY ##0 05/23/12 03/07/22 History (MULTIVITAMIN) cyclobenzaprine 10 mg tablet 10 mg PO PRN PRN prn ##0 05/23/12 11/20/22 History oxycodone 5 mg tablet (Roxicodone) 20 mg PO Q4HP PRN Pain (Scale 05/23/12 11/20/22 History Score 1-3) ##0 prochlorperazine maleate 5 mg 10 mg PO PRN ##0 05/23/12 11/20/22 History tablet alprazolam 0.25 mg tablet See Rx Instructions .Route 12/25/16 11/20/22 History .COMPLEX PRN Anxiety ##0 cetirizine 10 mg tablet 10 mg PO PRN PRN allergies ##0 12/25/16 11/20/22 History tramadol 50 mg tablet 50 mg PO PRN PRN Breakthrough Pain 12/25/16 11/20/22 History ##0 rizatriptan 10 mg tablet (Maxalt) 10 mg PRN PRN migranes ##0 05/07/17 11/20/22 History aluminum hydrox-magnesium carb 160 2 tab PO PRN PRN Acid Reflux 09/22/20 03/07/22 History mg-105 mg chewable tablet aspirin 81 mg tablet,delayed 81 mg PO DAILY 09/22/20 11/20/22 History release levothyroxine 75 mcg tablet 75 mcg PO DAILY 09/22/20 11/20/22 History Allergies Allergy/AdvReac Type Severity Reaction Status Date / Time carbamazepine [From Tegretol] Allergy Severe suicidal Verified 03/07/22 15:20 gabapentin [GABAPENTIN] Allergy Severe suicidal Verified 03/07/22 15:20 morphine Allergy Severe stopped Verified 03/07/22 15:20 breating, hives prednisone Allergy Severe Anaphylaxis Verified 03/07/22 15:20 pregabalin [From LYRICA] Allergy Severe suicidal Verified 03/07/22 15:20 mirtazapine Allergy Unknown Verified 03/07/22 15:20 methadone Allergy difficulty Verified 03/07/22 15:20 breathing, confusion codeine AdvReac Mild Nausea Verified 03/07/22 15:20 Review of Systems Review of Systems ROS: Yes All systems reviewed with the patient and are negative except as otherwise documented Exam Vital Signs (past 8 hours): - 11/20/22 12:14 Temperature 97.6 F Pulse Rate 73 Respiratory Rate 16 Blood Pressure 114/73 Pulse Oximetry 99 Oxygen Delivery Method Room Air Oxygen Flow Rate 0 Oxygen Delivery Method Room Air Oxygen Flow Rate 0 Const General: cooperative HENMT Head: normal to inspection Eyes General: appearance normal, both eyes and all related structures Neck Neck: normal visual inspection Chest Chest: normal inspection of the chest Resp Effort & Inspection: normal respiratory effort Cardio Rate: regular rate GI Inspection: normal to inspection Skin General: no rashes or lesions noted Neuro General: patient alert and patient awake Extrem General: normal to inspection and no pedal edema Psych Appearance: grossly normal Assessment & Plan Assessment & Plan narrative: 62-year-old female with a personal history of colon polyps. Colonoscopy is pursued today.
--- NOTE | 2022-11-20 13:26 | PM.OP.COLON ---
Operative Date/Time/Diagnoses Date of procedure: 11/20/22 Time of procedure: 13:26 Pre-op diagnosis: Personal history of colon polyps. Post-op diagnosis: same Procedure & Clinicians Study performed: Colonoscopy with cold forceps polypectomy, cold snare polypectomy, hot snare polypectomy. Same procedure as scheduled: Yes Indications: Personal history of colon polyps. Surgeon: Froylan Araya Procedure Notes SCOAP/Timeout: Done Procedure in detail: After the risks and benefits were explained, written and verbal informed consent was obtained. The patient was brought into the procedure room and placed into the left lateral decubitus position. Please see anesthesia notes for sedation details. Digital rectal examination was accomplished. The scope was introduced into the patient and advanced under direct visualization to the cecum as identified by the appendiceal orifice and ileocecal valve. The scope was slowly withdrawn to carefully examine the mucosa for any defects or lesions. Comprehensive imaging was accomplished throughout the rectum including the dentate line. The colon was decompressed, the scope was then removed from the patient who tolerated the procedure well. Pediatric colonoscope Bowel prep adequate Scope withdrawal time: 20 minutes Sedation minutes: 43 Complications: none Impression: This was an exceedingly difficult navigation. The patient has a very tortuous redundant colon. On the ileocecal valve there was a diminutive polyp removed with cold forceps. There was a slightly larger 4-5 mm polyp in the ascending colon also removed with cold forceps. In the proximal transverse there was a sessile polyp perhaps 6 mm in greatest dimension removed with cold snare. All of these were grouped together as ?right colon?. A 2nd jar was opened up for polyps that were found in the descending and sigmoid. The larger of the 2 was perhaps 8 mm sessile and a hot snare was employed. The smaller 5 mm polyp was removed with cold snare and the site cauterized with the tip of the snare. Endoscopic diagnosis 1. 5 colon polyps. 2. Tortuous colon Post-procedure Plan for aftercare: 1. Await histopathology 2. Repeat colonoscopy with extra prep (for today she took 1-3/4 jugs of GoLYTELY) in 3 years. Disposition: PACU
[2022-11-20 13:27] VITALS: BP 106/77; PULSE 72; RESP 16; TEMP 36.5; O2SAT 94
[2022-11-20 13:33] VITALS: BP 120/82; PULSE 76; RESP 17; O2SAT 96
[2022-11-20 13:38] VITALS: BP 124/82; PULSE 67; RESP 12; O2SAT 97
[2022-11-20 13:43] VITALS: BP 115/78; PULSE 67; RESP 13; TEMP 36.4; O2SAT 99
[2022-11-20 13:49] VITALS: BP 111/76; PULSE 67; RESP 13; TEMP 36.2; O2SAT 98
== END 2022-11-20 14:23 | disposition home or self-care (01) ==
PROVIDERS: PCP Family Medicine; Referring Provider Internal Medicine Gastroenterology; Visit Provider Internal Medicine Gastroenterology
PROC: 0DJD8ZZ Inspection of Lower Intestinal Tract, Via Natural or Artificial Opening Endoscopic (ICD-10-PCS; CPT 45378; principal; 2022-11-20 13:00)
DX: Z12.11 Encounter for screening for malignant neoplasm of colon (principal); D12.2 Benign neoplasm of ascending colon; D12.4 Benign neoplasm of descending colon; Z86.010 Personal history of colon polyps
CPT/HCPCS: 45385; 45380; J2704

== ENCOUNTER → 2022-11-28 09:43 | Outpatient (CLI) | payer MEDICARE, SELFPAY ==
--- NOTE | 2022-11-28 10:35 | DI.DEXA.S_ITS ---
Bone Density Report Name: WARREN WILKINSON Age: 62 Sex: Female Ethnicity: White Date of : 1960 Indication: osteopenia; prior fracture; Referring Provider: MADELAINE CARMONA Study: Bone densitometry was performed. Exam Date: November 28, 2022 Accession number: [id number] Bone Density: Region BMD T-score Z-score Classification AP Spine(L1, L3) 0.898 -1.0 0.5 Normal Femoral Neck (Left) 0.644 -1.8 -0.5 Osteopenia Total Hip (Left) 0.765 -1.5 -0.4 Osteopenia Femoral Neck (Right) 0.634 -1.9 -0.6 Osteopenia Total Hip (Right) 0.789 -1.3 -0.2 Osteopenia Total Hip Mean 0.777 -1.4 -0.3 Osteopenia World Health Organization criteria for BMD impression classify patients as: Normal (T-score at or above -1.0), Osteopenia (T-score between -1.0 and -2.5), or Osteoporosis (T-score at or below -2.5). 10-year Fracture Risk: FRAX not reported because: Prior hip or vertebral fracture Previous Exams: -- Region Exam Age BMD T-score BMD Change BMD Change Date g/cm2 vs Baseline vs Previous -- AP Spine (L1,L3) 11/28/2022 62 0.898 -1.0 -0.053 (-5.6%)# -0.053 (-5.6%)# 05/06/2015 54 0.951 -0.6 Total Hip(Left) 11/28/2022 62 0.765 -1.5 -0.021 (-2.6%)# -0.011 (-1.4%)# 08/06/2018 58 0.776 -1.4 -0.010 (-1.2%) -0.010 (-1.2%) 05/06/2015 54 0.786 -1.3 Total Hip(Right) 11/28/2022 62 0.789 -1.3 -0.035 (-4.3%)# -0.043 (-5.1%)# 08/06/2018 58 0.832 -0.9 0.007 (0.9%) 0.007 (0.9%) 05/06/2015 54 0.824 -1.0 -- *Denotes significance at 95% confidence level, LSC for AP Spine = 0.022 g/cm2, LSC for Total Hip = 0.027 g/cm2 # Denotes dissimilar scan types or analysis methods Impression: The patient has low bone mass, based on the Right Femoral Neck T-score. The patient has risk factors, including: previous fracture. No significant bone loss was observed. Discussion: INCREASED RISK OF FRACTURE DUE TO HISTORY OF FRACTURE. The patient's previous fracture puts the patient at high risk of a future fracture. In untreated patients, the risk of osteoporotic fracture increases approximately two-fold for each 1.0 SD decrease in T-score. Low bone density is not the only risk factor for fracture; also consider factors such as patient's age, frailty or poor health, risk of falling, risk of injury, previous osteoporotic fracture, family history of osteoporosis, cigarette smoking, low body weight, etc. Not everyone with a low trauma fracture has osteoporosis; osteomalacia and other metabolic bone disorders should also be considered. Patients who have osteoporosis should be evaluated for specific diseases and conditions (secondary causes) that may cause or contribute to bone loss and fracture risk. National Osteoporosis Foundation (NOF) recommends pharmacologic intervention for patients with a prior hip or vertebral fracture regardless of BMD T-score. The patient should follow a healthful lifestyle (good nutrition with adequate calcium and vitamin D, and appropriate weight-bearing exercise). Follow-Up: Consider a repeat BMD and Vertebral Fracture Assessment (VFA) exam in 2 years or sooner if medically necessary, to reassess this patient's status. Reported by: CESAR DE LA VEGA M.D. on 11/28/2022 10:47:00 AM.
== END ==
PROVIDERS: PCP Family Medicine; Referring Provider Internal Medicine; Visit Provider Internal Medicine
DX: M85.851 Other specified disorders of bone density and structure, right thigh (principal); Z13.820 Encounter for screening for osteoporosis; Z78.0 Asymptomatic menopausal state; K63.9 Disease of intestine, unspecified; Z90.710 Acquired absence of both cervix and uterus; Z92.23 Personal history of estrogen therapy
CPT/HCPCS: 77080

== ENCOUNTER 2022-12-01 12:31 | Emergency (ER) | payer MEDICARE, SELFPAY ==
[2022-12-01 12:57] VITALS: BP 133/80; PULSE 88; RESP 17; TEMP 36.7; O2SAT 98; BMI 21.6
--- NOTE | 2022-12-01 12:58 | DI.CT.S_ITS ---
PROCEDURE: CT CERVICAL SPINE WO CON INDICATIONS: fall, head injury yesterday +poss LOC TECHNIQUE: Noncontrast 3 mm thick sections acquired from the skull base to the T4 level. Sagittal and coronal reformats were then constructed. For radiation dose reduction, the following was used: automated exposure control, adjustment of mA and/or kV according to patient size. COMPARISON: [facility], CT, C-SPINE WITH CONTRAST, 07/04/2010, 11:02. FINDINGS: Image quality: Excellent. Bones: No fractures or dislocations. Degenerative changes noted. Visualized superior ribs are intact. Soft tissues: Prevertebral soft tissues are normal in thickness. No paravertebral hematomas. No apical pneumothoraces. Moderate emphysema. IMPRESSION: No acute cervical spine injury. Dictated by: Shannan Ayala M.D. on 12/01/2022 at 13:39 Approved by: Shannan Ayala M.D. on 12/01/2022 at 13:41
--- NOTE | 2022-12-01 12:58 | ED_ITS ---
HPI - Head Injury <Amy Lancaster PA-C - Last Filed: 12/01/22 14:58> General Chief complaint: Head Injury Stated complaint: Fall on concrete, hit head on sun, LOC Time Seen by Provider: 12/01/22 12:58 History of Present Illness HPI Narrative: This is a 62-year-old woman with chronic use of cane, chronic back pain, smoker, migraines, who presents with concern for headache and change in her walking since she fell and hit her head 2 days ago at home. Patient states on Sunday afternoon around 4:00 p.m. she was standing in her truck attempting to pull a large box containing a wearing apparel presser out of her truck, the handle on the cardboard box broke and she went flying backwards out of the truck landing on the concrete behind her and hitting her head. She said she felt a ?crack? and had severe pain and screamed. She says she was alone at home and she knows that she called 911 eventually in his unsure if she lost consciousness but thinks she may have because she seems to have lost track of time between 4:00 p.m. and around 6:00 p.m. when the director fixed income came. She states the director fixed income evaluated her but because she had no vision change or vomiting did not transport her. She states during the fall she also sustained a ?raspberry? on her shoulder behind her shoulder blade but has been able to move her arm normally and is not concerned for injury there. Patient states that she felt okay that evening and the next morning however all day yesterday she was kind of ?in a fog? and felt like her gait was off she states she feels like she is sometimes walking more to the left and sometimes walking more to the right which is unusual for her. She denies dizziness or feeling like the room is spinning but states there is ?a fog in front of my vision? she endorses a headache that is not severe and states that her right ear became tingly/numb recently. She denies any other complaints or concerns including dizziness, severe headache, neck pain, syncope, vomiting, nausea or any other symptoms. Related Data Home Medications Medication Instructions Recorded Confirmed CA PANTOTHENATE/FOLIC ACID/VIT 1 tab PO QDAY ##0 05/23/12 03/07/22 (MULTIVITAMIN) cyclobenzaprine 10 mg tablet 10 mg PO PRN PRN prn ##0 05/23/12 11/20/22 oxycodone 5 mg tablet (Roxicodone) 20 mg PO Q4HP PRN Pain (Scale 05/23/12 11/20/22 Score 1-3) ##0 prochlorperazine maleate 5 mg 10 mg PO PRN ##0 05/23/12 11/20/22 tablet alprazolam 0.25 mg tablet See Rx Instructions .Route 12/25/16 11/20/22 .COMPLEX PRN Anxiety ##0 cetirizine 10 mg tablet 10 mg PO PRN PRN allergies ##0 12/25/16 11/20/22 tramadol 50 mg tablet 50 mg PO PRN PRN Breakthrough Pain 12/25/16 11/20/22 ##0 rizatriptan 10 mg tablet (Maxalt) 10 mg PRN PRN migranes ##0 05/07/17 11/20/22 aluminum hydrox-magnesium carb 160 2 tab PO PRN PRN Acid Reflux 09/22/20 03/07/22 mg-105 mg chewable tablet aspirin 81 mg tablet,delayed 81 mg PO DAILY 09/22/20 11/20/22 release levothyroxine 75 mcg tablet 75 mcg PO DAILY 09/22/20 11/20/22 estradiol 0.5 mg tablet mg 12/01/22 Allergies Allergy/AdvReac Type Severity Reaction Status Date / Time carbamazepine [From Tegretol] Allergy Severe suicidal Verified 12/01/22 13:03 gabapentin [GABAPENTIN] Allergy Severe suicidal Verified 12/01/22 13:03 morphine Allergy Severe stopped Verified 12/01/22 13:03 breating, hives prednisone Allergy Severe Anaphylaxis Verified 12/01/22 13:03 pregabalin [From LYRICA] Allergy Severe suicidal Verified 12/01/22 13:03 mirtazapine Allergy Unknown Verified 12/01/22 13:03 methadone Allergy difficulty Verified 12/01/22 13:03 breathing, confusion codeine AdvReac Mild Nausea Verified 12/01/22 13:03 Review of Systems <Amy Lancaster PA-C - Last Filed: 12/01/22 14:58> Review of Systems Narrative: See HPI Patient History <Amy Lancaster PA-C - Last Filed: 12/01/22 14:58> Surgical History H/O: hysterectomy S/P bilateral mastectomy Social History household members: none Smoking Status: Current every day smoker alcohol intake: current Smoking Status: Current every day smoker alcohol intake frequency: holidays/special occasions only Substance Use Type: does not use, sedatives, opiates, painkillers and prescri ption drug Exam <Amy Lancaster PA-C - Last Filed: 12/01/22 14:58> Narrative Exam Narrative: GENERAL: 62 year old patient appears stated age. Well-developed patient, in mild distress. HEAD: Atraumatic. Normocephalic. EYES: Pupils equal round and reactive. Extraocular motions intact. No scleral icterus. No injection or drainage. ENT: Nose without bleeding, purulent drainage. Uvula midline. Airway patent. NECK: Trachea midline. Non tender CARDIOVASCULAR: Regular rate and rhythm without murmurs, gallops, or rubs. RESPIRATORY: Clear to auscultation. Breath sounds equal bilaterally. No wheezes, rales, or rhonchi. GASTROINTESTINAL: Abdomen soft, non-tender, nondistended. EXTREMITIES: No edema or joint tenderness. Normal active range of motion of all extremities. BACK: There is slight tenderness over the right scapula soft tissue with no obvious bruising swelling. Nontender without deformity or crepitance. No flank tenderness. NEURO: AOx3. Cranial nerves 2-12 intact, equal furniture arranger bilaterally, [id number]-sm-[id number] intact bilaterally, EOMs intact. No nystagmus Ambulates slightly slowly in a straight line with assistance of cane SKIN: No rash or erythema of visible areas Initial Vital Signs Initial Vital Signs: Vital Signs Temperature 98.1 F 12/01/22 12:57 Pulse Rate 88 12/01/22 12:57 Respiratory Rate 17 12/01/22 12:57 Blood Pressure 133/80 12/01/22 12:57 Pulse Oximetry 98 12/01/22 12:57 Oxygen Delivery Method Room Air 12/01/22 12:57 <Devika Chew DO - Last Filed: 12/02/22 18:11> Initial Vital Signs Initial Vital Signs: Vital Signs Temperature 98.1 F 12/01/22 12:57 Pulse Rate 88 12/01/22 12:57 Respiratory Rate 17 12/01/22 12:57 Blood Pressure 133/80 12/01/22 12:57 Pulse Oximetry 98 12/01/22 12:57 Oxygen Delivery Method Room Air 12/01/22 12:57 Course <Amy Lancaster PA-C - Last Filed: 12/01/22 14:58> Orders Ordered: ED Orders 12/01/22 12:58 CT cervical spine wo con Stat CT head/brain wo con Stat Vital Signs Vital signs: Vital Signs - 8 hr 12/01/22 12:57 12/01/22 14:50 Temperature 98.1 F Pulse Rate 88 74 Respiratory Rate 17 16 Blood Pressure 133/80 141/78 H Pulse Oximetry 98 98 Oxygen Delivery Method Room Air Room Air <Devika Chew DO - Last Filed: 12/02/22 18:11> Orders Ordered: ED Orders 12/01/22 12:58 CT cervical spine wo con Stat CT head/brain wo con Stat Vital Signs Vital signs: Vital Signs - 8 hr 12/01/22 12:57 12/01/22 14:50 Temperature 98.1 F Pulse Rate 88 74 Respiratory Rate 17 16 Blood Pressure 133/80 141/78 H Pulse Oximetry 98 98 Oxygen Delivery Method Room Air Room Air MDM - Head Injury <Amy Lancaster PA-C - Last Filed: 12/01/22 14:58> Differential Diagnosis Differential diagnosis: Likely concussion without loss of consciousness, closed head injury, postconcussion syndrome and concussion with loss of consciousness Imaging Data CT scan - head: My Impression: Agree with Radiology interpretation Radiologist's Impression: [address] [address] [address] Scan Report Signed Patient: Laila Yost MR#: [id number] : 1960 Acct:[id number] Age/Sex: 62 / F Date of Service: 12/01/22 Loc: ED Accession Number: [id number] ?? Procedure: CT head/brain wo con Ordering Provider: Amy Lancaster P.A-C PROCEDURE:? CT HEAD/BRAIN WO CON ? INDICATIONS:? fall, head injury LOC yesterday ? TECHNIQUE:? Noncontrast 4.5 mm thick angled axial sections acquired from the foramen magnum to the vertex, with coronal and sagittal reformats.? For radiation dose reduction, the following was used:? automated exposure control, adjustment of mA and/or kV according to patient size.? ? COMPARISON:? [facility], CT, CT ANGIO HEAD AND NECK, 08/12/2019, 13:10. ? FINDINGS:? Image quality:? Excellent.? ? CSF spaces:? Basal cisterns are patent.? No extra-axial fluid collections.? Ventricles are normal in size and shape.? ? Brain:? No midline shift.? No intracranial masses or hemorrhage.? Breaux-white matter interface is normal.? ? Skull and face:? Calvarium and visualized facial bones are intact, without suspicious lesions.? ? Sinuses:? Visualized sinuses and mastoids are clear.? ? IMPRESSION:? ? 1. No acute intracranial abnormalities. ? ? ? Dictated by: Shannan Ayala M.D. on 12/01/2022 at 13:38 ? ? Approved by: Shannan Ayala M.D. on 12/01/2022 at 13:39?? CT - cervical spine: My Impression: Agree with Radiology interpretation Radiologist's Impression: [place] [address] CT Scan Report Signed Patient: Laila Yost MR#: [id number] : 1960 Acct:[id number] Age/Sex: 62 / F Date of Service: 12/01/22 Loc: ED Accession Number: [id number] ?? Procedure: CT cervical spine wo con Ordering Provider: Amy Lancaster P.A-C PROCEDURE:? CT CERVICAL SPINE WO CON ? INDICATIONS:? fall, head injury yesterday +poss LOC ? TECHNIQUE:? Noncontrast 3 mm thick sections acquired from the skull base to the T4 level.? Sagittal and coronal reformats were then constructed.? For radiation dose reduction, the following was used:? automated exposure control, adjustment of mA and/or kV according to patient size.? ? COMPARISON:? [facility], CT, C-SPINE WITH CONTRAST, 07/04/2010, 11:02. ? FINDINGS:? Image quality:? Excellent.? ? Bones:? No fractures or dislocations.? Degenerative changes noted.? Visualized superior ribs are intact.? ? Soft tissues:? Prevertebral soft tissues are normal in thickness.? No paravertebral hematomas.? No apical pneumothoraces.? Moderate emphysema.? ? ? IMPRESSION:? No acute cervical spine injury. ? ? ? Dictated by: Shannan Aylaa M.D. on 12/01/2022 at 13:39 ? ? Approved by: Shannan Ayala M.D. on 12/01/2022 at 13:41?? Treatment and disposition Shared decision making:: Shared decision-making was used indeterminate the patient's plan of care in the emergency department and plan for outpatient follow-up. MDM Narrative Medical decision making narrative: Generally well-appearing 62-year-old woman who presents with concern for having fallen and hit her head 2 days ago with no previous medical evaluation except for EMT checkup at the time of injury. She is not on blood thinners however she does take aspirin. Unclear if she had loss of consciousness or not, symptoms have been consistent with concussion, including some ?brain fog? mild vision changes and headaches. Patient also endorsed difficulty with ambulation however today she has no evidence of this and is able to walk well in a straight line uses a cane at baseline. CT noncontrast head and neck are unremarkable today, her neuro exam is also unremarkable. Counseled her to monitor carefully for new or worsening symptoms and ensure that she seeks re-evaluation of these develop. She will also have a friend check in with her regularly by phone at minimum if not in person and plans to follow up with her PCP for recheck within the week. Return precautions provided, follow-up plan discussed, all questions answered. Discharge Plan Departure Patient Disposition: Home Clinical Impression: Concussion, Fall Instructions: Concussion Activity Restrictions/Additional Instructions: *You have been diagnosed with concussion and fall *What to do: *Please continue to take your regular medications as directed. [ ] New medication prescriptions sent to your pharmacy: [ ] [ ] New medication written as a paper prescription [ *] No new medications given *Please follow up with your primary care provider in 2-3 days, call for an appointment. Let them know you were seen in the Emergency Department and that we ask that you be seen in follow up. We will electronically transmit a record of today's note if your PCP is in our system. We did imaging of your head and neck today and do not see evidence of bleeding, or bony injury. I suspect that you sustained a concussion when you fell on Sunday, these symptoms can last for up to a few weeks however if you have worsening symptoms such as increasing difficulty with walking, vomiting, persistent or severe headache, new changes in vision or other symptoms of concern do not hesitate to be re-evaluated. *If you do not have a primary care provider please contact the [facility] Resource line at [phone]. They will ask some questions about your medical history and help get you set up with a doctor in the community. *Return to Emergency Department if you should have any new, worsening or concerning symptoms, such as [fever greater than 101 F, shaking chills, worsening pain, persistent vomiting or other bothersome symptoms] Prescriptions: No Action cyclobenzaprine 10 MG tablet 10 mg PO PRN PRN (Reason: prn) Qty: 0 prochlorperazine maleate 5 MG tablet 10 mg PO PRN Qty: 0 CA PANTOTHENATE/FOLIC ACID/VIT (MULTIVITAMIN) 1 tab PO QDAY Qty: 0 oxycodone [Roxicodone] 5 MG tablet 20 mg PO Q4HP PRN (Reason: Pain (Scale Score 1-3)) Qty: 0 alprazolam 0.25 MG tablet See Rx Instructions .ROUTE .COMPLEX PRN (Reason: Anxiety) Qty: 0 Rx Instructions: 2mg QHS, 0.5mg PRN cetirizine 10 MG tablet 10 mg PO PRN PRN (Reason: allergies) Qty: 0 tramadol 50 MG tablet 50 mg PO PRN PRN (Reason: Breakthrough Pain) Qty: 0 rizatriptan [Maxalt] 10 MG tablet 10 mg PRN PRN (Reason: migranes) Qty: 0 levothyroxine 75 mcg Tablet 75 mcg PO DAILY aspirin 81 mg Tablet,Delayed Release (Dr/Ec) 81 mg PO DAILY aluminum hydrox-magnesium carb 160-105 mg Tablet,Chewable 2 tab PO PRN PRN (Reason: Acid Reflux) estradiol 0.5 mg tablet Patient Comments: TAKE 1/2 (ONE-HALF) TABLET BY MOUTH ONCE DAILY Referrals: Darryl Yanez DO [Primary Care Provider] - Stand Alone Forms: Patient Portal/API <Devika Chew DO - Last Filed: 12/02/22 18:11> Cosign ED Attending Cosignature Attestation: I was immediately available in the department for consultation. Documentation has been reviewed. Case was discussed with myself.
--- NOTE | 2022-12-01 12:58 | DI.CT.S_ITS ---
PROCEDURE: CT HEAD/BRAIN WO CON INDICATIONS: fall, head injury LOC yesterday TECHNIQUE: Noncontrast 4.5 mm thick angled axial sections acquired from the foramen magnum to the vertex, with coronal and sagittal reformats. For radiation dose reduction, the following was used: automated exposure control, adjustment of mA and/or kV according to patient size. COMPARISON: [facility], CT, CT ANGIO HEAD AND NECK, 08/12/2019, 13:10. FINDINGS: Image quality: Excellent. CSF spaces: Basal cisterns are patent. No extra-axial fluid collections. Ventricles are normal in size and shape. Brain: No midline shift. No intracranial masses or hemorrhage. Breaux-white matter interface is normal. Skull and face: Calvarium and visualized facial bones are intact, without suspicious lesions. Sinuses: Visualized sinuses and mastoids are clear. IMPRESSION: 1. No acute intracranial abnormalities. Dictated by: Shannan Ayala M.D. on 12/01/2022 at 13:38 Approved by: Shannan Ayala M.D. on 12/01/2022 at 13:39
[2022-12-01 14:50] VITALS: BP 141/78; PULSE 74; RESP 16; O2SAT 98
== END 2022-12-01 14:52 | disposition home or self-care (01) ==
PROVIDERS: Emergency Provider Student in an Organized Health Care Education/Training Program; PCP Family Medicine
DX: S06.0X0A Concussion without loss of consciousness, initial encounter (principal); W18.00XA Striking against unspecified object with subsequent fall, initial encounter
CPT/HCPCS: 70450; 72125; 99283; 99284

== ENCOUNTER → 2023-01-26 16:37 | Outpatient (CLI) | payer MEDICARE, SELFPAY ==
[2023-01-27 07:39] LABS: Alpha 1 Anti Trypsin 137 mg/dL (101-187)
== END ==
PROVIDERS: PCP Family Medicine; Referring Provider Internal Medicine Critical Care Medicine; Visit Provider Internal Medicine Critical Care Medicine
DX: J43.2 Centrilobular emphysema (principal); R06.09 Other forms of dyspnea; R91.1 Solitary pulmonary nodule; F17.200 Nicotine dependence, unspecified, uncomplicated
CPT/HCPCS: 36415; 82103; 99214

== ENCOUNTER → 2023-09-04 17:09 | Outpatient (CLI) | payer MEDICARE, SELFPAY ==
--- NOTE | 2023-09-04 | DI.MRI.S_ITS ---
PROCEDURE: MR LUMBAR SPINE WO CON INDICATIONS: Lumbar radiculopathy - right side pain TECHNIQUE: Noncontrast sagittal T1 spin echo and T2 fast echo, sagittal STIR, and T2 fast spin echo through the lumbar spine. In cases with scoliosis, additional coronal T2 fast spin echo may be performed. COMPARISON: [facility], MR, MR LUMBAR SPINE WO CON, 09/14/2021, 18:49. FINDINGS: Image quality: Excellent. Alignment and Curvature: There is normal bony alignment. Remote posterior lateral joaquin and pedicle screw fixation at L5-S1 with extensive metal artifact. Bone Marrow: Marrow is of normal overall signal. No acute vertebral body compression fractures. Spinal Cord: Conus medullaris terminates at the L1-L2 level. Visualized cord demonstrates normal signal and size. Paraspinous Soft Tissues: No paravertebral masses. T12-L1: Normal appearance. L1-L2: Normal appearance. L2-L3: No significant change. Disc bulge. Facet hypertrophy. Mild canal stenosis. Tbyt-eh-sivxncqn right foraminal narrowing. Mild left foraminal narrowing. L3-L4: Unchanged. Disc bulge. Facet and ligament hypertrophy. Iyjh-iv-plopredx canal stenosis there is no significant foraminal stenosis. L4-L5: Metallic artifact from fusion hardware at L5. Disc bulge. Facet hypertrophy. No significant canal stenosis. Mild bilateral foraminal stenosis. L5-S1: Unable to evaluate secondary to extensive metal artifact. IMPRESSION: 1. Remote posterior lateral joaquin and pedicle screw fixation at L5-S1. Extensive metal artifact precludes evaluation of this level by MRI. 2. Otherwise unchanged findings. 3. Multilevel facet arthropathy. 4. Mild canal stenosis at L2-L3 and vapg-hj-qmdyxbfj canal stenosis at L3-L4. Comment: If suspect significant findings at L5-S1, CT may potentially be helpful. Dictated by: Ismael Mitchell M.D. on 09/05/2023 at 8:17 Approved by: Ismael Mitchell M.D. on 09/05/2023 at 8:22
== END ==
PROVIDERS: PCP Family Medicine; Referring Provider Family Medicine; Visit Provider Family Medicine
DX: M47.26 Other spondylosis with radiculopathy, lumbar region (principal); M51.16 Intervertebral disc disorders with radiculopathy, lumbar region; M48.061 Spinal stenosis, lumbar region without neurogenic claudication; Z98.1 Arthrodesis status
CPT/HCPCS: 72148

== ENCOUNTER → 2024-01-10 14:53 | Outpatient (CLI) | payer MEDICARE, SELFPAY ==
--- NOTE | 2024-01-10 14:59 | DI.RAD.S_ITS ---
PROCEDURE: XR HIP W PEL IF DONE RT 2V INDICATIONS: LUMBAGO W/SCIATICA TECHNIQUE: AP pelvis with lateral view(s) of the right hip(s). COMPARISON: None. FINDINGS: Bones: No fractures or dislocations. Surgical hardware is consistent with prior posterior fusion at the lumbosacral level. Pelvic ring appears intact. Subchondral cystic changes noted along the right acetabulum. No distortion is seen in the femoral head or the acetabulum. Further degenerative changes are seen with the moderate narrowing of the joint space medially. Visualized soft tissues appear unremarkable. Soft tissues: The visualized bowel gas pattern is normal. No suspicious soft tissue calcifications. IMPRESSION: Moderate degenerative changes in the right hip. Dictated by: Ab Zavala M.D. on 01/10/2024 at 16:48 Approved by: Ab Zavala M.D. on 01/10/2024 at 16:52
--- NOTE | 2024-01-10 14:59 | DI.CT.S_ITS ---
PROCEDURE: CT LUMBAR SPINE WO CON INDICATIONS: LUMBAGO W/SCIATICA TECHNIQUE: Noncontrast 3 mm thick sections acquired from the T12 level to the sacrum. Sagittal and coronal reformats were constructed. For radiation dose reduction, the following was used: automated exposure control. COMPARISON: [facility], MR, MR LUMBAR SPINE WO CON, 09/04/2023, 17:17. [facility], CT, L-SPINE WITHOUT CONTRAST, 02/02/2015, 12:58. FINDINGS: Image quality: Excellent. Bones: There is posterior fusion at L5-S1. Trace anterolisthesis is present at L4 on L5. Hardware is intact without hardware fracture or periprosthetic lucency to suggest loosening. Alignment is stable. Mild disc bulges are present L2-3, L3-4, L4-5. Mild spinal stenosis L2-3, dvaf-st-tdkelxdg L3-4. Yeeh-bq-klclonly right and left foraminal narrowing L2-3, mild bilateral L4-5. Foramina is poorly evaluated secondary to artifact at L5-S1. However, there is felt to be likely at least mild to moderate bilateral foraminal narrowing. Soft tissues: No retroperitoneal masses or hematomas. Visualized aorta is normal in caliber. IMPRESSION: Degenerative and postsurgical changes appearing stable compared to prior exam. Dictated by: Mallorie Conley M.D. on 01/10/2024 at 19:43 Approved by: Mallorie Conley M.D. on 01/10/2024 at 19:50
== END ==
PROVIDERS: PCP Family Medicine; Referring Provider Family Medicine; Visit Provider Family Medicine
DX: M54.41 Lumbago with sciatica, right side (principal); M47.816 Spondylosis without myelopathy or radiculopathy, lumbar region; Z98.1 Arthrodesis status
CPT/HCPCS: 72131; 73502

== ENCOUNTER 2024-06-02 17:31 | Emergency (ER) | payer MEDICARE, SELFPAY ==
[2024-06-02 17:35] VITALS: BP 114/66; PULSE 85; RESP 17; TEMP 36.5; O2SAT 99; BMI 21.1
--- NOTE | 2024-06-02 17:39 | DI.RAD.S_ITS ---
PROCEDURE: XR FOOT RT MIN 3V INDICATIONS: bent toes awkward after fall, pain TECHNIQUE: 3 views of the foot were acquired. COMPARISON: [facility], , FOOT 3V RIGHT, 02/02/2015, 12:39. FINDINGS: Bones: Irregularity at the 1st digit proximal phalangeal base. No significant displacement. No dislocations. No suspicious bony lesions. Soft tissues: No tibiotalar joint effusion. Achilles tendon appears normal. IMPRESSION: 1st digit proximal phalanx possible base fracture. Recommend correlation for point tenderness. Consider follow-up radiographs in 10-14 days. Dictated by: Kehinde Rg M.D. on 06/02/2024 at 19:19 Approved by: Kehinde Rg M.D. on 06/02/2024 at 19:22
--- NOTE | 2024-06-02 17:49 | ED.LOWEXIN ---
HPI - Extremity Injury (Lower) <Trista Stapleton PA-C - Last Filed: 06/02/24 19:48> General Chief Complaint: Extremity Injury, Lower Stated Complaint: Fall rt foot injury Time Seen by Provider: 06/02/24 17:48 Source: patient Mode of arrival: Ambulatory History of Present Illness HPI Narrative: Ms. Yost is a very pleasant 63-year-old female with a past medical history of chronic back pain, COPD, prior right great toe fracture who presents to the emergency department for right foot pain x2 days. Patient reports because of her chronic low back pain and sciatica she walks with a cane/has an unsteady gait. States that both yesterday and today she had partial falls where her right toes bent under the right foot. She now has pain and bruising across the top of her right foot. States that there is no pain at rest but when she bends her right great toe down words it hurts the foot. Denies any ankle pain or other pain. Denies head trauma or LOC. she has not on any blood thinners. She did drive herself here. Related Data Home Medications Medication Instructions Recorded Confirmed CA PANTOTHENATE/FOLIC ACID/VIT 1 tab PO QDAY ##0 05/23/12 01/26/23 (MULTIVITAMIN) cyclobenzaprine 10 mg tablet 10 mg PO PRN PRN prn ##0 05/23/12 01/26/23 oxycodone 5 mg tablet (Roxicodone) 20 mg PO Q4HP PRN Pain (Scale 05/23/12 01/26/23 Score 1-3) ##0 prochlorperazine maleate 5 mg 10 mg PO PRN ##0 05/23/12 01/26/23 tablet cetirizine 10 mg tablet 10 mg PO PRN PRN allergies ##0 12/25/16 01/26/23 tramadol 50 mg tablet 50 mg PO PRN PRN Breakthrough Pain 12/25/16 01/26/23 ##0 rizatriptan 10 mg tablet (Maxalt) 10 mg PRN PRN migranes ##0 05/07/17 01/26/23 aluminum hydrox-magnesium carb 160 2 tab PO PRN PRN Acid Reflux 09/22/20 01/26/23 mg-105 mg chewable tablet aspirin 81 mg tablet,delayed 81 mg PO DAILY 09/22/20 01/26/23 release levothyroxine 75 mcg tablet 75 mcg PO DAILY 09/22/20 01/26/23 estradiol 0.5 mg tablet mg 12/01/22 01/26/23 albuterol sulfate 90 mcg/actuation 2 inh inhalation Q4-6H PRN 01/26/23 01/26/23 breath activated powder inhaler alprazolam 0.25 mg tablet 0.5 mg .Route .COMPLEX PRN Anxiety 01/26/23 01/26/23 #0 tabs dicyclomine 10 mg capsule 10 mg PO .PRN 01/26/23 01/26/23 krill oil 500 mg capsule mg PO 01/26/23 01/26/23 melatonin 10 mg tablet 10 mg PO BEDTIME PRN 01/26/23 01/26/23 orlistat 60 mg capsule (Bob) 120 mg PO ONCE 01/26/23 01/26/23 Previous Rx's Medication Instructions Recorded fluticasone fur. 100 mcg-umeclid 1 inh inhalation DAILY #60 ea 01/26/23 62.5 mcg-vilant 25 mcg inhalat.powder (Trelegy Ellipta) Allergies Allergy/AdvReac Type Severity Reaction Status Date / Time carbamazepine [From Tegretol] Allergy Severe suicidal Verified 06/02/24 17:35 gabapentin [GABAPENTIN] Allergy Severe suicidal Verified 06/02/24 17:35 morphine Allergy Severe stopped Verified 06/02/24 17:35 breating, hives prednisone Allergy Severe Anaphylaxis Verified 06/02/24 17:35 pregabalin [From LYRICA] Allergy Severe suicidal Verified 06/02/24 17:35 mirtazapine Allergy Unknown Suicidal Verified 06/02/24 17:35 methadone Allergy difficulty Verified 06/02/24 17:35 breathing, confusion codeine AdvReac Mild Nausea Verified 06/02/24 17:35 Review of Systems <Trista Stapleton PA-C - Last Filed: 06/02/24 19:48> Review of Systems ROS Unobtainable: All systems reviewed & are unremarkable except as noted in HPI and below Patient History <Trista Stapleton PA-C - Last Filed: 06/02/24 19:48> Surgical History S/P bilateral mastectomy H/O: hysterectomy Social History household members: none Smoking Status: Current every day smoker alcohol intake: current Smoking Status: Current every day smoker alcohol intake frequency: holidays/special occasions only Exam <Trista Stapleton PA-C - Last Filed: 06/02/24 19:48> Narrative Exam Narrative: GENERAL: 63 year old patient appears stated age. Well-developed patient, in no acute distress. HEAD: Atraumatic. Normocephalic. NECK: Trachea midline. Cervical ROM intact. No midline bony tenderness. CARDIOVASCULAR: Regular rate RESPIRATORY: ?Nonlabored respirations. ?Speaking in clear, full sentences. EXTREMITIES: Ecchymosis across dorsal aspect of right foot. Tenderness to palpation of 1st MTP. Pain with plantar flexion of right foot. Strong DP and PT pulses. No tenderness to palpation of ankle. BACK: Nontender without deformity or crepitance. No flank tenderness. NEURO: AOx3. ?Clear speech. ?Moves all 4 extremities appropriately. Initial Vital Signs Initial Vital Signs: Vital Signs Temperature 97.7 F 06/02/24 17:35 Pulse Rate 85 06/02/24 17:35 Respiratory Rate 17 06/02/24 17:35 Blood Pressure 114/66 06/02/24 17:35 Pulse Oximetry 99 06/02/24 17:35 Oxygen Delivery Method Room Air 06/02/24 17:35 <Hubert Smalls DO - Last Filed: 06/02/24 21:20> Initial Vital Signs Initial Vital Signs: Vital Signs Temperature 97.7 F 06/02/24 17:35 Pulse Rate 85 06/02/24 17:35 Respiratory Rate 17 06/02/24 17:35 Blood Pressure 114/66 06/02/24 17:35 Pulse Oximetry 99 06/02/24 17:35 Oxygen Delivery Method Room Air 06/02/24 17:35 Course <Trista Stapleton PA-C - Last Filed: 06/02/24 19:48> Orders Ordered: ED Orders 06/02/24 17:39 XR foot RT min 3V Stat Vital Signs Vital signs: Vital Signs - 8 hr 06/02/24 17:35 Temperature 97.7 F Pulse Rate 85 Respiratory Rate 17 Blood Pressure 114/66 Pulse Oximetry 99 Oxygen Delivery Method Room Air <Hubert Smalsl - Last Filed: 06/02/24 21:20> Orders Ordered: ED Orders 06/02/24 17:39 XR foot RT min 3V Stat Vital Signs Vital signs: Vital Signs - 8 hr 06/02/24 17:35 Temperature 97.7 F Pulse Rate 85 Respiratory Rate 17 Blood Pressure 114/66 Pulse Oximetry 99 Oxygen Delivery Method Room Air MDM - Extremity Injury (Lower) <Trista Stapleton PA-C - Last Filed: 06/02/24 19:48> Medical Records Attestation: I reviewed the patient's medical records. Imaging Data Right Foot X-Ray: Radiologist's Impression: PROCEDURE: XR FOOT RT MIN 3V INDICATIONS: bent toes awkward after fall, pain TECHNIQUE: 3 views of the foot were acquired. COMPARISON: [facility], , FOOT 3V RIGHT, 02/02/2015, 12:39. FINDINGS: Bones: Irregularity at the 1st digit proximal phalangeal base. No significant displacement. No dislocations. No suspicious bony lesions. Soft tissues: No tibiotalar joint effusion. Achilles tendon appears normal. IMPRESSION: 1st digit proximal phalanx possible base fracture. Recommend correlation for point tenderness. Consider follow-up radiographs in 10-14 days. [facility] Narrative Medical decision making narrative: 63-year-old female with a past medical history of chronic back pain, COPD, prior right great toe fracture who presents to the emergency department for right foot pain x2 days. Differential diagnosis includes but is not limited to right foot fracture, right metatarsal fracture, contusion, sprain, strain, etc. On exam patient is in no acute distress, nontoxic-appearing, all vital signs within normal limits. She does have bruising across the top of her right foot, tenderness around the 1st MTP joint, and pain with plantar flexion of the foot. No pain in the ankle. No head trauma or other injury sustained from reported fall. We will obtain x-ray right foot. Patient declines the need for pain medication, she was provided with an ice pack. Right foot x-ray reveals 1st digit proximal phalanx possible base fracture. Patient does have point tenderness over this area. Her right great toe was wrapped with gauze wrap, Kerlix for support. She was placed into a right foot postoperative shoe. Advised she follow up with her primary care doctor and also Orthopedics/Podiatry. Patient is able to weight bear and reports improvement in pain after being wrapped and postoperative shoe placed. Recommended rice therapy and ibuprofen/Tylenol. ER return precautions discussed. Patient verbalized understanding of all information and is stable for discharge home. Discharge Plan Departure Patient Disposition: Home Clinical Impression: Closed fracture of proximal phalanx of toe of right foot, Foot pain, right Instructions: DI for Toe Fracture Activity Restrictions/Additional Instructions: Today your x-ray revealed a fracture of the right big toe base. We have wrapped your toe and placed into a postoperative shoe. Please follow up with your primary care doctor and an orthopedic doctor/inspector mechanical. You can schedule an appointment with [facility] at [phone]. Please use RICE therapy for your pain in addition to ibuprofen/acetaminophen. Rest the painful area. Ice the area of pain/swelling for at least 15 minutes, 4x a day. Compress the area of swelling using a brace, wrap, or splint if applied. Elevate the painful or swollen extremity by supporting it above the level of the heart with pillows when sitting or laying. Please take Ibuprofen (Motrin/Advil) or Acetaminophen (Tylenol) for pain. These are available over the counter. You may take Ibuprofen 600 mg every 8 hours with food for pain. You may also take Acetaminophen 650 mg every 4-6 hours for pain. Do not exceed 3000 mg of Tylenol a day as this can cause liver damage. Do not drink alcohol with either of these medications. Please follow up with your primary care doctor within the next 2-3 days for ER follow-up. (If you do not have a PCP you can call [phone]. ?to schedule an appointment with an [facility] Primary Care Provider) IF YOU DEVELOP ANY NEW OR WORSENING SYMPTOMS, RETURN TO THE ER! Please read the attached instructions, they highlight more specific treatments and interventions for you at home. Thank you for letting me participate in your care, Trista Stapleton PA-C Prescriptions: No Action cyclobenzaprine 10 MG tablet 10 mg PO PRN PRN (Reason: prn) Qty: 0 prochlorperazine maleate 5 MG tablet 10 mg PO PRN Qty: 0 CA PANTOTHENATE/FOLIC ACID/VIT (MULTIVITAMIN) 1 tab PO QDAY Qty: 0 oxycodone [Roxicodone] 5 MG tablet 20 mg PO Q4HP PRN (Reason: Pain (Scale Score 1-3)) Qty: 0 cetirizine 10 MG tablet 10 mg PO PRN PRN (Reason: allergies) Qty: 0 tramadol 50 MG tablet 50 mg PO PRN PRN (Reason: Breakthrough Pain) Qty: 0 rizatriptan [Maxalt] 10 MG tablet 10 mg PRN PRN (Reason: migranes) Qty: 0 alprazolam 0.25 mg tablet 0.5 mg .ROUTE .COMPLEX PRN (Reason: Anxiety) Qty: 0 Rx Instructions: 0.5 mg PRN; levothyroxine 75 mcg Tablet 75 mcg PO DAILY aspirin 81 mg Tablet,Delayed Release (Dr/Ec) 81 mg PO DAILY aluminum hydrox-magnesium carb 160-105 mg Tablet,Chewable 2 tab PO PRN PRN (Reason: Acid Reflux) estradiol 0.5 mg tablet Patient Comments: TAKE 1/2 (ONE-HALF) TABLET BY MOUTH ONCE DAILY Bob 60 mg capsule 120 mg PO ONCE Rx Instructions: administer during or up to 1 hour after meal dicyclomine 10 mg capsule 10 mg PO .PRN krill oil 500 mg capsule PO melatonin 10 mg tablet 10 mg PO BEDTIME PRN albuterol sulfate 90 mcg/actuation aerosol powdr breath activated 2 inh inhalation Q4-6H PRN Trelegy Ellipta 100-62.5-25 mcg blister with device 1 inh inhalation DAILY Qty: 60 0RF Referrals: Darryl Yanez DO [Primary Care Provider] - Stand Alone Forms: Patient Portal/API/Survey ED Sign-out <Hubert Smalls DO - Last Filed: 06/02/24 21:20> Cosign ED Attending Cosignature Attestation: Dr Smalls Co-Sign Statement: I was available for consultation during this patient's emergency department visit. This chart is signed by myself for administrative purposes only. I did not have direct contact with this patient during this visit. They were seen independently by the APC.
--- NOTE | 2024-06-02 19:51 | PC.NURSE ---
Toe spica to right great toe with kerlex and coban. Patient states improvement in discomfort.
== END 2024-06-02 19:52 | disposition home or self-care (01) ==
PROVIDERS: Emergency Provider Physician Assistant; PCP Family Medicine
DX: S92.411A Displaced fracture of proximal phalanx of right great toe, initial encounter for closed fracture (principal); W19.XXXA Unspecified fall, initial encounter
CPT/HCPCS: 73630; 99283

== ENCOUNTER → 2024-06-22 14:39 | Outpatient (CLI) | payer MEDICARE, SELFPAY ==
--- NOTE | 2024-06-22 14:40 | DI.MRI.S_ITS ---
PROCEDURE: MR HIP RT WO CON INDICATIONS: Osteoarthritis right hip TECHNIQUE: Noncontrast coronal T1 spin echo and STIR through the bony pelvis. Coronal and axial T2 fast spin echo with fat saturation, sagittal T1 spin echo, and oblique axial T2 fast spin echo with fat saturation through the hip. COMPARISON: [facility], CR, XR HIP W PEL IF DONE RT 2V, 01/10/2024, 15:06. FINDINGS: Image quality: Fair; motion artifact and susceptibility artifact from lumbar fusion hardware limit evaluation. Bones: Mild marrow edema and subchondral cyst formation is present at the right acetabulum (3/21; 4/4). There is no evidence of acute fracture, osteonecrosis, or acetabular dysplasia. There is normal morphology of the femoral heads. Joints: The sacroiliac joints are preserved, without reactive marrow changes. There is mild right hip osteoarthritis. There is a small left hip joint effusion without pericapsular edema. There is no significant right hip joint effusion. Acetabular cartilage: Partial-thickness chondral loss is present at the right acetabular superior articular cartilage (6/11), lying superficial to the subchondral cysts. Labrum: There is blunting of the right hip anterior and superior labrum, likely secondary to chronic labral tearing. Bursae: There is no increased fluid within the greater trochanteric or iliopsoas bursae. Muscles: The muscles about the pelvis appear normal in signal and size. Tendons: There is minimal intermediate signal of the gluteus medius tendon insertions on the greater trochanters bilaterally (09/02-). The tendons about the pelvis otherwise appear normal in signal and size. Nerves: The sciatic nerves are normal in signal and caliber. Vessels: The dominant flow voids are preserved. Other: No other acute abnormality. IMPRESSION: 1. Mild right hip osteoarthritis with partial thickness chondral loss and reactive marrow edema at the acetabulum. 2. Minimal bilateral gluteus medius tendinosis. Dictated by: Stanley Lovett M.D. on 06/24/2024 at 16:48 Approved by: Stanley Lovett M.D. on 06/24/2024 at 16:54
== END ==
PROVIDERS: PCP Family Medicine; Referring Provider Family Medicine; Visit Provider Family Medicine
DX: M16.11 Unilateral primary osteoarthritis, right hip (principal); M25.452 Effusion, left hip
CPT/HCPCS: 73721

== ENCOUNTER → 2024-09-19 12:16 | Outpatient (CLI) | payer MEDICARE, SELFPAY ==
--- NOTE | 2024-09-19 12:18 | DI.RAD.S_ITS ---
PROCEDURE: XR DEXA AXIAL SKELETON INDICATIONS: SCREENING FOR OSTEOPOROSIS COMPARISON: [facility], [facility], XR DEXA AXIAL SKELETON, 11/28/2022, 10:35. FINDINGS: Lumbar Spine: Bone mineral density 0.922 (previously 0.898) g/cm2, T score -0.8 (previously -1.0). Left Femoral Neck: Bone mineral density 0.670 (previously 0.644) g/cm2, T score -1.6 (previously -1.8). Left Hip: Bone mineral density 0.759 (previously 0.765) g/cm2, T score -1.5 (previously -1.5). Fracture Risk Calculation (when applicable): 10-year fracture risk of a major osteoporotic fracture 14 percent and of a hip fracture 2.8 percent. (T score greater or equal to -1.0 to: NORMAL) (T score from -1.1 to -2.4: OSTEOPENIA) (T score less than or equal to -2.5: OSTEOPOROSIS) IMPRESSION: Osteopenia--- recommend repeat DEXA in 2-3 years for reassessment. Follow-up guidelines as follows: Osteoporosis: Consider a repeat DEXA and Vertebral Fracture Assessment (VFA) exam in 2 years or sooner if medically necessary, to reassess this patient's status. Osteopenia: Consider a repeat DEXA in 2-3 years to reassess this patient's status, or if there is a new clinical indication. Normal: Consider a repeat DEXA in 5 years or sooner, or if there is a new clinical indication. All treatment decisions require clinical judgment and consideration of individual patient factors, including patient preferences, comorbidities, previous drug use, risk factors not captured in the FRAX model (e.g., frailty, falls, vitamin D deficiency, increased bone turnover, interval significant decline in bone density ) and possible under- or over-estimation of fracture risk by FRAX. In addition, the NOF Guide recommends that FDA-approved medical therapies be considered in postmenopausal women and men age >= 50 years with a: * Hip or vertebral (clinical or morphometric) fracture * T-score of <=-2.5 at the spine or hip * Ten-year fracture probability by FRAX of >= 3% for hip fracture or >=20% for major osteoporotic fracture. Dictated by: Stanley Berry M.D. on 09/19/2024 at 18:56 Approved by: Stanley Berry M.D. on 09/19/2024 at 19:00
== END ==
PROVIDERS: PCP Family Medicine
DX: M85.88 Other specified disorders of bone density and structure, other site (principal)
CPT/HCPCS: 77080

== ENCOUNTER → 2024-09-19 12:20 | Outpatient (CLI) | payer MEDICARE, SELFPAY ==
--- NOTE | 2024-09-19 12:21 | DI.CT.S_ITS ---
PROCEDURE: CT HIP RIGHT WITHOUT CON INDICATIONS: RT HIP PAIN TECHNIQUE: Noncontrast 3 mm axial sections acquired through the bony pelvis. Additional 3 mm axial sections acquired through the symptomatic hip joint, with coronal and sagittal reformats. COMPARISON: [facility], MR, MR HIP RT WO CON, 06/22/2024, 14:51. FINDINGS: Image quality: Excellent. Bones: Diffuse osseous demineralization. No acute fracture or dislocation. Joints: Mild-moderate right hip osteoarthritis with subchondral cyst formation at the acetabular roof (4/37). No significant right hip joint effusion. 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 Mild bilateral sacroiliac osteoarthritis. Muscles: Overall muscle bulk is preserved. Mild calcific tendinosis of the right gluteus medius tendon at the insertion (4/36). Vessels: Mild aortoiliac atherosclerosis without aneurysmal dilatation. Lymph nodes: No lower retroperitoneal or bilateral inguinal lymphadenopathy. Other soft tissues: Large volume stool burden. Intrapelvic contents otherwise within normal limits. Other: Fat contours around the sciatic nerves are preserved. Status post prior lumbosacral fusion without hardware complication IMPRESSION: 1. Mild-moderate right hip osteoarthritis. 2. Mild bilateral sacroiliac osteoarthritis. 3. Mild calcific tendinosis of the right gluteus medius tendon insertion. 4. Pubic symphysis chondrocalcinosis. Dictated by: Stanley Lovett M.D. on 09/19/2024 at 18:45 Approved by: Stanley Lovett M.D. on 09/19/2024 at 18:49
== END ==
PROVIDERS: PCP Family Medicine; Referring Provider Student in an Organized Health Care Education/Training Program; Visit Provider Student in an Organized Health Care Education/Training Program
DX: M16.11 Unilateral primary osteoarthritis, right hip (principal); M47.818 Spondylosis without myelopathy or radiculopathy, sacral and sacrococcygeal region; M11.251 Other chondrocalcinosis, right hip; M25.551 Pain in right hip; Z98.1 Arthrodesis status
CPT/HCPCS: 73700

== ENCOUNTER → 2024-09-19 12:27 | Outpatient (CLI) | payer MEDICARE, SELFPAY ==
--- NOTE | 2024-09-19 12:28 | DI.CT.S_ITS ---
PROCEDURE: CT CHEST WO CON INDICATIONS: LUNG NODULE TECHNIQUE: Noncontrast 2.0-2.5 mm thick sections acquired from the pulmonary apices to the posterior costophrenic angles. 7 mm thick axial MIP and 5 mm coronal and sagittal reformats were then acquired. For radiation dose reduction, the following was used: automated exposure control, adjustment of mA and/or kV according to patient size. COMPARISON: [facility], CT, CT CHEST WO CON, 10/26/2022, 12:45. FINDINGS: Image quality: Diagnostic. Some images are limited by beam hardening artifacts. 4 mm nodule right middle lobe medially (series 3 image 208) unchanged. 3 mm calcified granuloma right middle lobe inferiorly (series 3, image 237) unchanged pleural-parenchymal scarring in the left lower lobe lateral basal and bilateral posterior basal unchanged. No new nodules. Mild centrilobular COPD/emphysematous changes predominantly in the upper lobes unchanged. Bilateral breast implants unchanged pinprick mild calcifications of the coronary arteries aortic arch unchanged. No pneumothorax, no pleural effusion Marianne no pericardial effusion, no lobar consolidation. Moderate degenerative changes of the thoracic spine with intervertebral metallic cages at T7-8, T8-9 unchanged. Pattern of constipation upper abdomen partially image. Heart: Heart size is normal. Thoracic Vessels: The aorta and pulmonary arteries demonstrate normal size. Mediastinum and Maria E: No enlarged lymph nodes. IMPRESSION: 4 mm right middle lobe nodule unchanged. Lung rads category 2 continue annual screening if indicated. Dictated by: Tye Queen M.D. on 09/19/2024 at 13:49 Approved by: Tye Queen M.D. on 09/19/2024 at 14:28
== END ==
PROVIDERS: PCP Family Medicine; Referring Provider Internal Medicine Hematology & Oncology; Visit Provider Internal Medicine Hematology & Oncology
DX: C50.811 Malignant neoplasm of overlapping sites of right female breast (principal); Z17.0 Estrogen receptor positive status [ER+]; Z98.82 Breast implant status; R91.1 Solitary pulmonary nodule; M85.88 Other specified disorders of bone density and structure, other site; M47.814 Spondylosis without myelopathy or radiculopathy, thoracic region; M25.551 Pain in right hip; M16.11 Unilateral primary osteoarthritis, right hip; M47.818 Spondylosis without myelopathy or radiculopathy, sacral and sacrococcygeal region; M11.251 Other chondrocalcinosis, right hip; G47.01 Insomnia due to medical condition; G47.30 Sleep apnea, unspecified; Z98.1 Arthrodesis status
CPT/HCPCS: 71250; 73700; 77080; 99214

== ENCOUNTER 2025-04-10 13:46 | Emergency (ER) | payer MEDICARE, SELFPAY ==
[2025-04-10 13:56] VITALS: BP 108/72; PULSE 87; RESP 18; TEMP 36.5; O2SAT 99; BMI 20.8
--- NOTE | 2025-04-10 14:07 | DI.RAD.S_ITS ---
PROCEDURE: XR CHEST 1V INDICATIONS: possible aspiration TECHNIQUE: One view of the chest was acquired. COMPARISON: [facility], CR, XR CHEST 2V, 09/03/2020, 10:42. [facility], CR, XR CHEST 2V, 09/21/2019, 11:54. FINDINGS: Surgical changes and devices: Thoracic spine intervertebral body spacers in unchanged position. Lungs and pleura: Lungs are clear. No pleural effusions or pneumothorax. Mediastinum: Mediastinal contours appear normal. Heart size is normal. Bones and chest wall: No suspicious bony lesions. Overlying soft tissues appear unremarkable. IMPRESSION: No acute cardiopulmonary abnormality is seen. Dictated by: Nicolás Arizmendi M.D. on 04/10/2025 at 14:41 Approved by: Nicolás Arizmendi M.D. on 04/10/2025 at 14:42
== END 2025-04-10 18:00 | disposition left against medical advice (07) ==
PROVIDERS: Emergency Provider Emergency Medicine; PCP Family Medicine
DX: T18.9XXA Foreign body of alimentary tract, part unspecified, initial encounter (principal)
CPT/HCPCS: 71045; 99281